=== PATIENT | female | born 1975 | race Caucasian/White ===

== ENCOUNTER 2016-12-20 18:04 | Emergency (ER) | payer BC ==
--- NOTE | 2016-12-20 19:42 | ED ---
Upper Extremity Pain - HPI Summary HPI Summary: Patient presents to ED after a mechanical fall. She endorses pain over her right ventral side of wrist, the base of the left thumb with ecchymosis and left shoulder pain. She states a 8/10 pain. She has not taken anything for the pain. She denies other injuries, hitting her head or LOC. She denies midline cervical tenderness. She is a smoker, but is otherwise healthy. She is able to flex and extend the right wrist, but is unable to move the thumb. She notes to worsening pain on the posterior shoulder and feels she cannot move it. Denies numbness or tingling. - History of Current Complaint Chief Complaint: EDExtremityUpper Stated Complaint: LT WRIST/SHOULDER,RT WRIST, TRIPPED/FELL Time Seen by Provider: 12/20/16 18:25 Hx Obtained From: Patient Hx Last Menstrual Period: doesnt have it anymore Mechanism Of Injury: Fall From A Standing Position Onset/Duration: Started Minutes Ago Timing: Constant Severity Initially: Moderate Severity Currently: Moderate Pain Location: Shoulder, Wrist, Hand Character: Aching, Throbbing Aggravating Factor(s): Lifting, Flexion, Extension, Internal/External Rotation, Abduction, Adduction Alleviating Factor(s): Nothing Associated Signs & Symptoms: Positive: Bruising Related History: Dominant Hand Right - Risk Factors Non-Orthopedic Risk Factor: Negative DVT Risk Factors: Negative Septic Arthritis Risk Factor: Negative Compartment Syndrome Risk Factors: Pain - Allergies/Home Medications Allergies/Adverse Reactions: Allergies Allergy/AdvReac Type Severity Reaction Status Date / Time Clindamycin Allergy Intermediate Hives Verified 06/20/16 10:19 Sulfa Drugs Allergy Intermediate Hives Verified 06/20/16 10:19 PMH/Surg Hx/FS Hx/Imm Hx Previously Healthy: Yes Endocrine/Hematology History: Reports: Hx Diabetes - hx of-off all meds. s/p gastric bypass Denies: Hx Anticoagulant Therapy, Hx Thyroid Disease, Other Endocrine/ Hematological Disorders Cardiovascular History: Reports: Hx Angina, Hx Hypercholesterolemia, Hx Hypertension - hx of-off all meds. s/p gastric bypass, Other Cardiovascular Problems/Disorders - hyperlipidemia Denies: Hx Coronary Artery Disease, Hx Myocardial Infarction, Hx Valvular Heart Disease Respiratory History: Reports: Hx Asthma, Hx Sleep Apnea Denies: Hx Chronic Obstructive Pulmonary Disease (COPD), Other Respiratory Problems/Disorders GI History: Reports: Hx Gastroesophageal Reflux Disease, Other GI Disorders - gastric bypass 2013 Denies: Hx Ulcer History: Denies: Hx Chronic Renal Failure, Other Problems/Disorders Musculoskeletal History: Denies: Hx Fibromyalgia, Other Musculoskeletal History Sensory History: Reports: Hx Contacts or Glasses - GLASSES Denies: Hx Hearing Aid, Other Sensory Impairments Opthamlomology History: Reports: Hx Contacts or Glasses - GLASSES Denies: Other Sensory Impairments Neurological History: Denies: Hx CVA, Hx Dementia, Hx Developmental Delay, Hx Headaches, Hx Migraine, Hx Nerve Disease, Hx Peripheral Neuropathy, Hx Seizures, Hx Spinal Cord Injury, Hx Transient Ischemic Attacks (TIA), Other Neuro Impairments/ Disorders Psychiatric History: Reports: Hx Depression Denies: Hx Schizophrenia, Hx Bipolar Disorder, Other Psychiatric Issues/ Disorders - Surgical History Surgery Procedure, Year, and Place: 2011 - Lining of Uterus removed x2, 1992, 2001. GASTRIC BYPASS , 2013, [place] Hx Anesthesia Reactions: No - Immunization History Date of Tetanus Vaccine: UTD Date of Influenza Vaccine: 2012 Infectious Disease History: Denies: Hx Clostridium Difficile, Hx Hepatitis, Hx Human Immunodeficiency Virus (HIV), Hx of Known/Suspected MRSA, Hx Shingles, Hx Tuberculosis, Hx Known/ Suspected VRE, Hx Known/Suspected VRSA, History Other Infectious Disease, Traveled Outside the [place] in Last 30 Days - Family History Known Family History: Positive: None Negative: Blood Disorder - Social History Alcohol Use: None Hx Substance Use: No Substance Use Type: Reports: None Hx Tobacco Use: No Smoking Status (MU): Never Smoked Tobacco Review of Systems Constitutional: Negative Eyes: Negative Cardiovascular: Negative Respiratory: Negative Positive: no symptoms reported, see HPI Positive: Arthralgia - posterior shoulder pain, Myalgia Positive: Bruising - over base of left thumb Neurological: Negative Psychological: Normal All Other Systems Reviewed And Are Negative: Yes Physical Exam Triage Information Reviewed: Yes Vital Signs On Initial Exam: Initial Vitals Temp Pulse Resp BP 98.3 F 68 18 130/90 12/20/16 18:08 12/20/16 18:08 12/20/16 18:08 12/20/16 18:08 Vital Signs Reviewed: Yes Appearance: Positive: Well-Appearing, Well-Nourished Skin: Positive: Other - ecchymosis over left base of thumb Head/Face: Positive: Normal Head/Face Inspection Eyes: Positive: EOMI, Conjunctiva Clear Neck: Positive: Supple, Nontender, No Lymphadenopathy Respiratory/Lung Sounds: Positive: Clear to Auscultation, Breath Sounds Present Cardiovascular: Positive: Normal, RRR, Pulses are Symmetrical in both Upper and Lower Extremities Musculoskeletal: Positive: Limited @ - abduction of the left shoulder, Pain @ - left shoulder, right wrist, left thumb Neurological: Positive: Sensory/Motor Intact, Alert, Oriented to Person Place, Time, Speech Normal Psychiatric: Positive: Normal Diagnostics - Vital Signs Vital Signs Temp Pulse Resp BP Pulse Ox 12/20/16 18:34 97.9 F 92 18 160/100 98 12/20/16 18:08 98.3 F 68 18 130/90 - Laboratory Lab Statement: Any lab studies that have been ordered have been reviewed, and results considered in the medical decision making process. Course/Dx - Course Course Of Treatment: Patient sent to xray. INDICATION: Left shoulder pain. COMPARISON: None. TECHNIQUE: Routine frontal, Y and axial views were obtained. FINDINGS: There are no acute bony findings. The a.c. and glenohumeral joints are intact. There are findings of calcific tendinitis. IMPRESSION: CALCIFIC TENDINITIS. Ibuprofen given to patient in ED. Patient OK with discharge and will follow up as needed. - Diagnoses Differential Diagnosis/HQI/PQRI: Positive: Bursitis, Contusion, Strain, Sprain Provider Diagnoses: Calcific tendinitis, Fall Discharge - Discharge Plan Condition: Stable Disposition: HOME Patient Education Materials: Calcific Tendinitis (ED) Referrals: Benjamin Bang MD [Primary Care Provider] - Osiris Lee MD [Medical Doctor] - Additional Instructions: Ibuprofen 600mg three times daily with meals Ice x 2 days, then use heat Xrays were taken today and were negative for fractures. Follow up with PCP if symptoms persist, or go see the ortho.
[2016-12-20] MEDS ORDERED: Ibuprofen TAB* 600 MG PO ONE (19:47)
--- NOTE | 2016-12-20 20:04 | RAD ---
INDICATION: Right wrist pain COMPARISON: Right wrist November 05, 2012 TECHNIQUE: AP and lateral views were obtained. FINDINGS: The bony structures, joint spaces, and soft tissues are normal for age. IMPRESSION: NEGATIVE EXAMINATION
--- NOTE | 2016-12-20 20:06 | RAD ---
INDICATION: Left hand pain COMPARISON: September 01, 2007 TECHNIQUE: AP, lateral, and oblique views were obtained. FINDINGS: The bony structures, joint spaces, and soft tissues are normal for age. IMPRESSION: NO ACUTE BONY FINDINGS.
--- NOTE | 2016-12-20 20:07 | RAD ---
INDICATION: Left shoulder pain COMPARISON: None TECHNIQUE: Routine frontal, Y and axial views were obtained. FINDINGS: There are no acute bony findings. The a.c. and glenohumeral joints are intact. There are findings of calcific tendinitis. IMPRESSION: CALCIFIC TENDINITIS
[2016-12-20 20:54] VITALS: BP 150/92
== END 2016-12-20 20:53 | disposition home or self-care (01) ==
LOC: ED 18:04
DX: M65.20 Calcific tendinitis, unspecified site (principal); S60.012A Contusion of left thumb without damage to nail, initial encounter; M25.531 Pain in right wrist; W19.XXXA Unspecified fall, initial encounter; Y93.9 Activity, unspecified; Y92.9 Unspecified place or not applicable
CPT/HCPCS: 99282; A9270-GY

== ENCOUNTER 2017-09-11 17:53 | Emergency (ER) | payer BC ==
[2017-09-11 20:45] LABS: Urine Appearance Clear; Urine Blood Negative (Negative); Urine Color Yellow; Urine Ketones Negative (Negative); Urine Protein Negative (Negative); Urine Specific Gravity 1.023 (1.010-1.030); Urine Urobilinogen Negative (Negative)
[2017-09-11 21:12] LABS: ABS Basophils 0 10^3/ul (0-0.2); ABS Eosinophils 0.1 10^3/ul (0-0.6); ABS Lymphocytes 1.3 10^3/ul (1.0-4.8); ABS Monocytes 0.5 10^3/ul (0-0.8); ABS Neutrophils 3.4 10^3/ul (1.5-7.7); ABS Nucleated RBC 0 10^3/ul; Hematocrit 37 % (35-47); Hemoglobin 12.4 g/dl (12.0-16.0); Lymphocyte % 25.2 % (25-47); Mean Corpuscular HGB Conc 34 g/dl (31-36); Mean Corpuscular Hemoglobin 29 pg (27-31); Mean Corpuscular Volume 86 fL (80-97); Mean Platelet Volume 9 um3 (7.4-10.4); Nucleated Red Blood Cells % 0.1; Platelet Count 202 10^3/ul (150-450); Red Blood Count 4.29 10^6/ul (4.0-5.4); Red Cell Distribution Width 14 % (10.5-15); White Blood Count 5.3 10^3/ul (3.5-10.8)
[2017-09-11 21:30] LABS: EGFR Non-African American 74.7 (>60)
--- NOTE | 2017-09-11 21:53 | ED ---
Cynthia Orr Thomas, scribed for Juvenal Bernabe MD on 09/11/17 at 203 . Abdominal Pain/Female - HPI Summary HPI Summary: The patient is a 42 year old female complaining of LLQ abdominal pain that began today at 13:00. The pain is constant at 2/10, although she has a sharp shooting pain about once a minute. The patient additionally complains of nausea. The patient denies vomiting, constipation, diarrhea, and dysuria. She has a history of gastric bypass in 2013. - History of Current Complaint Chief Complaint: EDAbdPain Stated Complaint: ABD PAIN Time Seen by Provider: 09/11/17 20:13 Hx Obtained From: Patient Hx Last Menstrual Period: doesnt have it anymore Onset/Duration: Lasting Hours - onset today at 13:00, Still Present Severity Initially: Mild Severity Currently: Mild Pain Intensity: 2 Pain Scale Used: 0-10 Numeric Location: Discrete At: LLQ Radiates: No Character: Sharp Alleviating Factor(s): Nothing Associated Signs and Symptoms: Positive: Nausea. Negative: Fever, Constipation , Urinary Symptoms, Vomiting, Diarrhea Allergies/Adverse Reactions: Allergies Allergy/AdvReac Type Severity Reaction Status Date / Time MS Clindamycin [Clindamycin] Allergy Intermediate Hives Verified 06/20/16 10:19 MS Sulfa Drugs [Sulfa Drugs] Allergy Intermediate Hives Verified 06/20/16 10:19 PMH/Surg Hx/FS Hx/Imm Hx Endocrine/Hematology History: Reports: Hx Diabetes - hx of-off all meds. s/p gastric bypass Denies: Hx Anticoagulant Therapy, Hx Thyroid Disease, Other Endocrine/ Hematological Disorders Cardiovascular History: Reports: Hx Angina, Hx Hypercholesterolemia, Hx Hypertension - hx of-off all meds. s/p gastric bypass, Other Cardiovascular Problems/Disorders - hyperlipidemia Denies: Hx Coronary Artery Disease, Hx Myocardial Infarction, Hx Valvular Heart Disease Respiratory History: Reports: Hx Asthma, Hx Sleep Apnea Denies: Hx Chronic Obstructive Pulmonary Disease (COPD), Other Respiratory Problems/Disorders GI History: Reports: Hx Gastroesophageal Reflux Disease, Other GI Disorders - gastric bypass 2013 Denies: Hx Ulcer History: Denies: Hx Chronic Renal Failure, Other Problems/Disorders Musculoskeletal History: Denies: Hx Fibromyalgia, Other Musculoskeletal History Sensory History: Reports: Hx Contacts or Glasses - GLASSES Denies: Hx Hearing Aid, Other Sensory Impairments Opthamlomology History: Reports: Hx Contacts or Glasses - GLASSES Denies: Other Sensory Impairments Neurological History: Denies: Hx CVA, Hx Dementia, Hx Developmental Delay, Hx Headaches, Hx Migraine, Hx Nerve Disease, Hx Peripheral Neuropathy, Hx Seizures, Hx Spinal Cord Injury, Hx Transient Ischemic Attacks (TIA), Other Neuro Impairments/ Disorders Psychiatric History: Reports: Hx Depression Denies: Hx Schizophrenia, Hx Bipolar Disorder, Other Psychiatric Issues/ Disorders - Surgical History Surgery Procedure, Year, and Place: 2011 - Lining of Uterus removed x2, 1992, 2001. GASTRIC BYPASS , 2014, [place] Hx Anesthesia Reactions: No - Immunization History Date of Tetanus Vaccine: UTD Date of Influenza Vaccine: 2012 Infectious Disease History: No Infectious Disease History: Denies: Hx Clostridium Difficile, Hx Hepatitis, Hx Human Immunodeficiency Virus (HIV), Hx of Known/Suspected MRSA, Hx Shingles, Hx Tuberculosis, Hx Known/ Suspected VRE, Hx Known/Suspected VRSA, History Other Infectious Disease, Traveled Outside the [place] in Last 30 Days - Family History Known Family History: Negative: Blood Disorder - Social History Alcohol Use: None Hx Substance Use: No Substance Use Type: Reports: None Hx Tobacco Use: No Smoking Status (MU): Never Smoked Tobacco Review of Systems Negative: Fever Positive: Abdominal Pain, Nausea. Negative: Vomiting, Diarrhea, Other - constipation Negative: dysuria All Other Systems Reviewed And Are Negative: Yes Physical Exam - Summary Physical Exam Summary: Appearance: The patient is well-nourished in no acute distress and in no acute pain. Skin: The skin is warm and dry and skin color reflects adequate perfusion. HEENT: ~The head is normocephalic and atraumatic. The pupils are equal and reactive. The conjunctivae are clear and without drainage. ~Nares are patent and without drainage. ~Mouth reveals moist mucous membranes and the throat is without erythema and exudate. ~The external ears are intact. The ear canals are patent and without drainage. The tympanic membranes are intact. Neck: the neck is supple with full range of motion and non-tender. There are no carotid bruits. ~There is no neck vein distension. Respiratory: Chest is non-tender. ~Lungs are clear to auscultation and breath sounds are symmetrical and equal. Cardiovascular: Heart is regular rate and rhythm. ~There is no murmur or rub auscultated. ~~There is no peripheral edema and pulses are symmetrical and equal. Abdomen: The abdomen is soft. The LLQ is tender. ~There are normal bowel sounds heard in all four quadrants and there is no organomegaly palpated. Back: There is no CVA tenderness appreciated. Musculoskeletal: There is no back tenderness noted. ~Extremities are non-tender with full range of motion. ~There is good capillary refill. ~There is no peripheral edema or calf tenderness elicited. Neurological: Patient is alert and oriented to person, place and time. ~The patient has symmetrical motor strength in all four extremities. ~Cranial nerves are grossly intact. Deep tendon reflexes are symmetrical and equal in all four extremities. Psychiatric: The patient has an appropriate affect and does not exhibit any anxiety or depression. Triage Information Reviewed: Yes Vital Signs On Initial Exam: Initial Vitals Temp Pulse Resp BP Pulse Ox 98 F 81 18 139/89 98 09/11/17 18:05 09/11/17 18:05 09/11/17 18:05 09/11/17 18:05 09/11/17 18:05 Vital Signs Reviewed: Yes Diagnostics - Vital Signs Vital Signs Temp Pulse Resp BP Pulse Ox 09/11/17 18:05 98 F 81 18 139/89 98 - Laboratory Lab Results: Lab Results 09/11/17 09/11/17 09/11/17 Range/Units 20:37 21:00 21:00 WBC 5.3 (3.5-10.8) 10^3/ul RBC 4.29 (4.0-5.4) 10^6/ul Hgb 12.4 (12.0-16.0) g/dl Hct 37 (35-47) % MCV 86 (80-97) fL MCH 29 (27-31) pg MCHC 34 (31-36) g/dl RDW 14 (10.5-15) % Plt Count 202 (150-450) 10^3/ul MPV 9 (7.4-10.4) um3 Neut % (Auto) 63.5 (38-83) % Lymph % (Auto) 25.2 (25-47) % [place] % (Auto) 8.9 (1-9) % Eos % (Auto) 2.0 (0-6) % Baso % (Auto) 0.4 (0-2) % Absolute Neuts (auto) 3.4 (1.5-7.7) 10^3/ul Absolute Lymphs (auto) 1.3 (1.0-4.8) 10^3/ul Absolute Monos (auto) 0.5 (0-0.8) 10^3/ul Absolute Eos (auto) 0.1 (0-0.6) 10^3/ul Absolute Basos (auto) 0 (0-0.2) 10^3/ul Absolute Nucleated RBC 0 10^3/ul Nucleated RBC % 0.1 Sodium 139 (133-145) mmol/L Potassium 3.9 (3.5-5.0) mmol/L Chloride 109 (101-111) mmol/L Carbon Dioxide 25 (22-32) mmol/L Anion Gap 5 (2-11) mmol/L BUN 12 (6-24) mg/dL Creatinine 0.83 (0.51-0.95) mg/dL Est GFR ( Amer) 96.0 (>60) Est GFR (Non-Af Amer) 74.7 (>60) BUN/Creatinine Ratio 14.5 (8-20) Glucose 115 H (70-100) mg/dL Lactic Acid (0.5-2.0) mmol/L Calcium 8.9 (8.6-10.3) mg/dL Total Bilirubin 0.30 (0.2-1.0) mg/dL AST 19 (13-39) U/L ALT 17 (7-52) U/L Alkaline Phosphatase 71 (34-104) U/L C-Reactive Protein 1.40 (< 5.00) mg/L Total Protein 6.6 (6.4-8.9) g/dL Albumin 4.0 (3.2-5.2) g/dL Globulin 2.6 (2-4) g/dL Albumin/Globulin Ratio 1.5 (1-3) Lipase 17 (11.0-82.0) U/L Beta HCG, Quant < 0.60 mIU/mL Urine Color Yellow Urine Appearance Clear Urine pH 6.0 (5-9) Ur Specific [place] 1.023 (1.010-1.030) Urine Protein Negative (Negative) Urine Ketones Negative (Negative) Urine Blood Negative (Negative) Urine Nitrate Negative (Negative) Urine Bilirubin Negative (Negative) Urine Urobilinogen Negative (Negative) Ur Leukocyte Esterase Negative (Negative) Urine Glucose Negative (Negative) Urine Ascorbic Acid * H (Negative) 09/11/17 Range/Units 21:00 WBC (3.5-10.8) 10^3/ul RBC (4.0-5.4) 10^6/ul Hgb (12.0-16.0) g/dl Hct (35-47) % MCV (80-97) fL MCH (27-31) pg MCHC (31-36) g/dl RDW (10.5-15) % Plt Count (150-450) 10^3/ul MPV (7.4-10.4) um3 Neut % (Auto) (38-83) % Lymph % (Auto) (25-47) % [place] % (Auto) (1-9) % Eos % (Auto) (0-6) % Baso % (Auto) (0-2) % Absolute Neuts (auto) (1.5-7.7) 10^3/ul Absolute Lymphs (auto) (1.0-4.8) 10^3/ul Absolute Monos (auto) (0-0.8) 10^3/ul Absolute Eos (auto) (0-0.6) 10^3/ul Absolute Basos (auto) (0-0.2) 10^3/ul Absolute Nucleated RBC 10^3/ul Nucleated RBC % Sodium (133-145) mmol/L Potassium (3.5-5.0) mmol/L Chloride (101-111) mmol/L Carbon Dioxide (22-32) mmol/L Anion Gap (2-11) mmol/L BUN (6-24) mg/dL Creatinine (0.51-0.95) mg/dL Est GFR ( Amer) (>60) Est GFR (Non-Af Amer) (>60) BUN/Creatinine Ratio (8-20) Glucose (70-100) mg/dL Lactic Acid 1.0 (0.5-2.0) mmol/L Calcium (8.6-10.3) mg/dL Total Bilirubin (0.2-1.0) mg/dL AST (13-39) U/L ALT (7-52) U/L Alkaline Phosphatase (34-104) U/L C-Reactive Protein (< 5.00) mg/L Total Protein (6.4-8.9) g/dL Albumin (3.2-5.2) g/dL Globulin (2-4) g/dL Albumin/Globulin Ratio (1-3) Lipase (11.0-82.0) U/L Beta HCG, Quant mIU/mL Urine Color Urine Appearance Urine pH (5-9) Ur Specific [place] (1.010-1.030) Urine Protein (Negative) Urine Ketones (Negative) Urine Blood (Negative) Urine Nitrate (Negative) Urine Bilirubin (Negative) Urine Urobilinogen (Negative) Ur Leukocyte Esterase (Negative) Urine Glucose (Negative) Urine Ascorbic Acid (Negative) Result Diagrams: 09/11/17 21:00 09/11/17 21:00 Lab Statement: Any lab studies that have been ordered have been reviewed, and results considered in the medical decision making process. Abdominal Pain Fem Course/Dx - Course Course Of Treatment: Ms. Bernabe presented with a LLQ pain for a couple days. It is intermittent and crampy. She has had no change in B or B. This seems like a diverticulitis but with her history of gastric bypass 4 years ago, I am getting a CT scan with contrast. - Diagnoses Provider Diagnoses: Abdominal pain, History of gastric bypass Discharge - Discharge Plan Condition: Stable Disposition: OTHER Discharge Disposition Comment: Signed out to Dr. Wilhelm, pending CT Abd/Pel. Referrals: eLny Ortiz MD [Primary Care Provider] - The documentation as recorded by the Cynthia garcia Thomas accurately reflects the service I personally performed and the decisions made by me, Juvenal Bernabe MD.
--- NOTE | 2017-09-11 21:53 | RAD ---
INDICATION: Left lower quadrant pain. Nausea. COMPARISON: CT December 23, 2014 TECHNIQUE: Noncontrast axial source images were acquired from the level hemidiaphragms to the symphysis pubis. Intravenous contrast was not given per ED request. There is a small amount of oral contrast in the stomach only. Lung bases: The lung bases are clear. Liver: The liver is enlarged with findings of hepatic steatosis. Noncontrast imaging shows no evidence of a hepatic mass or ductal dilatation. Gallbladder: There are no calcified gallstones. There is no evidence of wall thickening or pericholecystic fluid.. Spleen: The spleen is normal in size. The noncontrast CT appearance is normal. Pancreas: Noncontrast imaging shows no pancreatic mass or ductal dilitation. Adrenal glands: No masses are identified. Kidneys/Bladder: There is no evidence of nephrolithiasis or CT evidence of hydronephrosis. Noncontrast imaging shows no evidence of a renal mass. The bladder is unremarkable.. Adenopathy: There is no evidence of intraperitoneal or retroperitoneal adenopathy. Evaluation is limited without oral contrast. Fluid collections: There is a small amount of free fluid in the cul-de-sac. Vessels: The aorta and iliac vessels are normal in caliber. There are no significant atherosclerotic changes. The IVC appears normal Pelvic organs: The uterus and adnexa appear normal GI tract: Evaluation of the bowel is limited without oral contrast. There is evidence of gastric bypass surgery. The remainder the upper GI tract is unremarkable. The colon is redundant and there is moderate stool. There is no obstruction. The appendix is visualized and appears normal. Soft tissues: No soft tissue abnormalities of the extraperitoneal abdomen or pelvis are identified. Osseous structures: There are no acute osseous findings. IMPRESSION: 1. Limited examination due to lack of intravenous or significant oral contrast. 2. Gastric bypass surgery. 3. Moderate stool with colonic redundancy. 4. Small amount of fluid in the cul-de-sac
[2017-09-11 22:52] VITALS: BP 131/81
== END 2017-09-11 22:46 ==
LOC: ED 17:53
DX: R10.32 Left lower quadrant pain (principal); Z98.84 Bariatric surgery status; R11.0 Nausea
CPT/HCPCS: 36415; 74176; 80053; 81003; 83605; 83690; 84702; 85025; 86140; 99284

== ENCOUNTER 2018-03-08 09:23 | Emergency (ER) | payer BC ==
[2018-03-08 09:35] VITALS: BP 139/82
--- NOTE | 2018-03-08 11:41 | ED ---
Lower Extremity - HPI Summary HPI Summary: This is scribe Kolton Pearson documenting for attending Rian Ennis MD. This patient is a 42 year old F presenting to [facility] with a chief complaint of R leg pain since 4 days ago. She reports that the leg has started swelling and that it feels hard when you press down. The patient rates the pain 7/10 in severity, enough to wake her up from sleep. She has had R hip pain since 2 months ago, which her PCP gave her ibuprofen for. Patient has a PMHx of diabetes and HTN, a PSHx of 2 C-sections, and a FHx of diabetes and HTN. She does not smoke or drink alcohol. I, Dr. Ennis, personally performed the services described in this documentation as scribed in my presence, and it is both accurate and complete. - History of Current Complaint Chief Complaint: EDHipPelvisInjury Stated Complaint: RT LEG PAIN Time Seen by Provider: 03/08/18 11:25 Hx Obtained From: Patient Hx Last Menstrual Period: doesnt have it anymore Onset of Pain: Days - 4 days Onset/Duration: Days - 4 days Severity Initially: Moderate Severity Currently: Moderate Pain Intensity: 7 Pain Scale Used: 0-10 Numeric Timing: Constant Associated Signs And Symptoms: Positive: Swelling, Other - "it feels hard when you press down" and R hip pain Aggravating Factor(s): Ambulation, Movement - Allergies/Home Medications Allergies/Adverse Reactions: Allergies Allergy/AdvReac Type Severity Reaction Status Date / Time MS Clindamycin [Clindamycin] Allergy Intermediate Hives Verified 03/08/18 09:36 MS Sulfa Drugs [Sulfa Drugs] Allergy Intermediate Hives Verified 03/08/18 09:36 PMH/Surg Hx/FS Hx/Imm Hx Endocrine/Hematology History: Reports: Hx Diabetes - hx of-off all meds. s/p gastric bypass Denies: Hx Anticoagulant Therapy, Hx Thyroid Disease, Other Endocrine/ Hematological Disorders Cardiovascular History: Reports: Hx Angina, Hx Hypercholesterolemia, Hx Hypertension - hx of-off all meds. s/p gastric bypass, Other Cardiovascular Problems/Disorders - hyperlipidemia Denies: Hx Coronary Artery Disease, Hx Myocardial Infarction, Hx Valvular Heart Disease Respiratory History: Reports: Hx Asthma, Hx Sleep Apnea Denies: Hx Chronic Obstructive Pulmonary Disease (COPD), Other Respiratory Problems/Disorders GI History: Reports: Hx Gastroesophageal Reflux Disease, Other GI Disorders - gastric bypass 2013 Denies: Hx Ulcer History: Denies: Hx Chronic Renal Failure, Other Problems/Disorders Musculoskeletal History: Denies: Hx Fibromyalgia, Other Musculoskeletal History Sensory History: Reports: Hx Contacts or Glasses - GLASSES Denies: Hx Hearing Aid, Other Sensory Impairments Opthamlomology History: Reports: Hx Contacts or Glasses - GLASSES Denies: Other Sensory Impairments Neurological History: Denies: Hx CVA, Hx Dementia, Hx Developmental Delay, Hx Headaches, Hx Migraine, Hx Nerve Disease, Hx Peripheral Neuropathy, Hx Seizures, Hx Spinal Cord Injury, Hx Transient Ischemic Attacks (TIA), Other Neuro Impairments/ Disorders Psychiatric History: Reports: Hx Depression Denies: Hx Schizophrenia, Hx Bipolar Disorder, Other Psychiatric Issues/ Disorders - Surgical History Surgery Procedure, Year, and Place: 2011 - Lining of Uterus removed x2, 1992, 2001. GASTRIC BYPASS , 2013, [place] Hx Anesthesia Reactions: No - Immunization History Date of Tetanus Vaccine: UTD Date of Influenza Vaccine: 2012 Infectious Disease History: No Infectious Disease History: Denies: Hx Clostridium Difficile, Hx Hepatitis, Hx Human Immunodeficiency Virus (HIV), Hx of Known/Suspected MRSA, Hx Shingles, Hx Tuberculosis, Hx Known/ Suspected VRE, Hx Known/Suspected VRSA, History Other Infectious Disease, Traveled Outside the [place] in Last 30 Days - Family History Known Family History: Positive: Hypertension, Diabetes Negative: Blood Disorder - Social History Occupation: Unemployed Lives: With Family Alcohol Use: None Hx Substance Use: No Substance Use Type: Reports: None Hx Tobacco Use: No Smoking Status (MU): Never Smoked Tobacco Review of Systems Negative: Fever Positive: Other - R leg pain and swelling. R leg "feels hard" All Other Systems Reviewed And Are Negative: Yes Physical Exam - Summary Physical Exam Summary: VITAL SIGNS: Reviewed. GENERAL: Patient is a well-developed and nourished FEMALE who is lying comfortable in the stretcher. Patient is not in any acute respiratory distress. She is able to bear weight. HEAD AND FACE: No signs of trauma. No ecchymosis, hematomas or skull depressions. No sinus tenderness. EYES: PERRLA, EOMI x 2, No injected conjunctiva, no nystagmus. EARS: Hearing grossly intact. Ear canals and tympanic membranes are within normal limits. MOUTH: Oropharynx within normal limits. NECK: Supple, trachea is midline, no adenopathy, no JVD, no carotid bruit, no c- spine tenderness, neck with full ROM. CHEST: Symmetric, no tenderness at palpation LUNGS: Clear to auscultation bilaterally. No wheezing or crackles. CVS: Regular rate and rhythm, S1 and S2 present, no murmurs or gallops appreciated. ABDOMEN: Soft, non-tender. No signs of distention. No rebound no guarding, and no masses palpated. Bowel sounds are normal. EXTREMITIES: Decreased ROM in R hip. No Andreina's sign. NEURO: Alert and oriented x 3. No acute neurological deficits. Speech is normal and follows commands. SKIN: Dry and warm Triage Information Reviewed: Yes Vital Signs On Initial Exam: Initial Vitals Temp Pulse Resp BP Pulse Ox 98.1 F 72 18 139/82 98 03/08/18 09:29 03/08/18 09:29 03/08/18 09:29 03/08/18 09:29 03/08/18 09:29 Vital Signs Reviewed: Yes Diagnostics - Vital Signs Vital Signs Temp Pulse Resp BP Pulse Ox 03/08/18 09:29 98.1 F 72 18 139/82 98 - Laboratory Lab Statement: Any lab studies that have been ordered have been reviewed, and results considered in the medical decision making process. - Radiology Hip/Pelvis X-Ray Radiology Interpretation Completed By: Radiologist - 12:09. Very mild osteoarthritis of the hips. ED Physician has reviewed this imaging report. - Ultrasound No standard instances Ultrasound Interpretation Completed By: Radiologist - Venous Doppler Study 12: 20. No evidence for RIGHT lower extremity deep venous thrombosis. ED Physician has reviewed this report. Lower Extremity Course/Dx - Course Assessment/Plan: This patient is a 42 year old F presenting to ED with CC of R hip pain and R calf pain. X-Rays of R hip show mild osteoarthritis and US of LE negative for DVT. The patient was given toradol and prednisone and the symptoms improved. The patient is able to ambulate and will be D/C with instructions to follow up with PCP in a week. Diagnosis: hip arthritis and muscoskeletal pain. - Diagnoses Differential Diagnosis/HQI/PQRI: Positive: Osteomyelitis Provider Diagnoses: Arthritis, hip Discharge - Sign-Out/Discharge Documenting (check all that apply): Patient Departure - D/C - Discharge Plan Condition: Stable Disposition: HOME Prescriptions: methylPREDNISolone [Medrol Dosepak 4 MG*] 0 mg PO .SEE SHELBY INSTRUCTION #1 shelby Naproxen [Naproxen 500 mg tab] 500 mg PO BID #30 tablet Patient Education Materials: Osteoarthritis (ED) Referrals: Leny Ortiz MD [Primary Care Provider] - 3 Days Additional Instructions: FOLLOW UP WITH YOUR PRIMARY CARE PROVIDER WITHIN ONE WEEK FOR HIGH BLOOD PRESSURE NOTED TODAY. RETURN TO THE EMERGENCY DEPARTMENT FOR CHANGING OR WORSENING SYMPTOMS.
--- NOTE | 2018-03-08 12:12 | RAD ---
Indication: RIGHT hip pain for several months. Comparison: September 11, 2017 CT. Technique: AP pelvis and AP and frog-leg lateral views RIGHT hip. Report: The RIGHT hip is normally located and demonstrates preserved joint space. Minimal osteophytic lipping at both hips. No fracture or stress reaction evident at the RIGHT hip or pelvis. Unremarkable sacroiliac joints and pubic symphysis. Pelvic phleboliths noted. Unremarkable soft tissue contours. IMPRESSION: #. Very mild osteoarthritis of the hips.
--- NOTE | 2018-03-08 12:23 | RAD ---
INDICATION: Multiple days RIGHT hip and thigh pain. COMPARISON: No relevant prior exams available on the [facility] for comparison. TECHNIQUE: Hector scale, color Doppler, and spectral analysis of the deep veins of the RIGHT lower extremity. Vessel compression, phasicity, and augmentation assessed. REPORT: The RIGHT common femoral, great saphenous, profunda femoral, partially duplicated femoral, popliteal, peroneal, and posterior tibial veins are patent. Patency of the LEFT common femoral vein documented. IMPRESSION: No evidence for RIGHT lower extremity deep venous thrombosis.
[2018-03-08] MEDS ORDERED: Ketorolac INJ* 60 MG/2 ML VIAL IM ONE (12:24)
[2018-03-08] MEDS ORDERED: predniSONE TAB* 20 MG PO ONE (12:27)
== END 2018-03-08 12:52 | disposition home or self-care (01) ==
LOC: ED 09:23
DX: M16.11 Unilateral primary osteoarthritis, right hip (principal); Z88.1 Allergy status to other antibiotic agents; Z88.2 Allergy status to sulfonamides
CPT/HCPCS: 96372; 99282; J1885; J7512

== ENCOUNTER → 2018-05-24 08:40 | Emergency (ER) | payer BC ==
[2018-05-24 11:06] VITALS: BP 119/82
--- NOTE | 2018-05-25 11:52 | ED ---
Skin Complaint - HPI Summary HPI Summary: Pt. is a 43 y.o female who presents to the ER for a rash x 1 month. Pt. states rash started on legs and has spread to arms. Rash is slightly itchy, not painful. No one at home has similar rash. Does not have pets. Pt. states she has seen her pcp and was placed on a course of prednisone and steroid cream which she stats did help. She cannot see her PCP again for about 2 weeks so presents to the ER instead. She denies any new lotions, soaps, detergents, exposures, ect. Does not work. Sxs are mild in severity. NO current modifying factors. - History of Current Complaint Chief Complaint: EDRashSkinAbscess Time Seen by Provider: 05/24/18 08:54 Stated Complaint: RASH Hx Obtained From: Patient Hx Last Menstrual Period: doesnt have it anymore Pain Intensity: 0 Pain Scale Used: 0-10 Numeric - Additional Pertinent History Primary Care Physician: [facility] - Allergy/Home Medications Allergies/Adverse Reactions: Allergies Allergy/AdvReac Type Severity Reaction Status Date / Time clindamycin Allergy Hives Verified 05/24/18 10:05 Sulfa (Sulfonamide Allergy Hives Verified 05/24/18 10:05 Antibiotics) Home Medications: Home Medications Cyanocobalamin (Vitamin B-12) [Vitamin B-12] 1,000 mcg PO DAILY 05/24/18 [ History Confirmed 05/24/18] Diclofenac Sodium EC TAB* [Voltaren EC TAB*] 75 mg PO BID PRN 05/24/18 [History Confirmed 05/24/18] Nystatin CREAM* [Nystatin Cream*] 1 applic TOPICAL BID PRN 05/24/18 [History Confirmed 05/24/18] Nystatin TOP POWDER* 1 applic TOPICAL BID PRN 05/24/18 [History Confirmed ] Omeprazole CAP* [Prilosec CAP* 20 MG] 40 mg PO DAILY 05/24/18 [History Confirmed 05/24/18] hydroCHLOROthiazide [Hydrochlorothiazide] 12.5 mg PO DAILY 05/24/18 [History Confirmed 05/24/18] PMH/Surg Hx/FS Hx/Imm Hx Previously Healthy: Yes Endocrine/Hematology History: Reports: Hx Diabetes - hx of-off all meds. s/p gastric bypass Denies: Hx Anticoagulant Therapy, Hx Thyroid Disease, Other Endocrine/ Hematological Disorders Cardiovascular History: Reports: Hx Angina, Hx Hypercholesterolemia, Hx Hypertension - hx of-off all meds. s/p gastric bypass, Other Cardiovascular Problems/Disorders - hyperlipidemia Denies: Hx Coronary Artery Disease, Hx Myocardial Infarction, Hx Valvular Heart Disease Respiratory History: Reports: Hx Asthma, Hx Sleep Apnea Denies: Hx Chronic Obstructive Pulmonary Disease (COPD), Other Respiratory Problems/Disorders GI History: Reports: Hx Gastroesophageal Reflux Disease, Other GI Disorders - gastric bypass 2013 Denies: Hx Ulcer History: Denies: Hx Chronic Renal Failure, Other Problems/Disorders Musculoskeletal History: Denies: Hx Fibromyalgia, Other Musculoskeletal History Sensory History: Reports: Hx Contacts or Glasses - GLASSES Denies: Hx Hearing Aid, Other Sensory Impairments Opthamlomology History: Reports: Hx Contacts or Glasses - GLASSES Denies: Other Sensory Impairments Neurological History: Denies: Hx CVA, Hx Dementia, Hx Developmental Delay, Hx Headaches, Hx Migraine, Hx Nerve Disease, Hx Peripheral Neuropathy, Hx Seizures, Hx Spinal Cord Injury, Hx Transient Ischemic Attacks (TIA), Other Neuro Impairments/ Disorders Psychiatric History: Reports: Hx Depression Denies: Hx Schizophrenia, Hx Bipolar Disorder, Other Psychiatric Issues/ Disorders - Surgical History Surgery Procedure, Year, and Place: 2011 - Lining of Uterus removed x2, 1992, 2001. GASTRIC BYPASS , 2013, [facility] Hx Anesthesia Reactions: No - Immunization History Date of Tetanus Vaccine: UTD Date of Influenza Vaccine: 2012 Infectious Disease History: No Infectious Disease History: Denies: Hx Clostridium Difficile, Hx Hepatitis, Hx Human Immunodeficiency Virus (HIV), Hx of Known/Suspected MRSA, Hx Shingles, Hx Tuberculosis, Hx Known/ Suspected VRE, Hx Known/Suspected VRSA, History Other Infectious Disease, Traveled Outside the [place] in Last 30 Days - Family History Known Family History: Positive: Hypertension, Diabetes Negative: Blood Disorder - Social History Occupation: Unemployed Lives: With Family Alcohol Use: None Hx Substance Use: No Substance Use Type: Reports: None Hx Tobacco Use: No Smoking Status (MU): Never Smoked Tobacco Review of Systems Constitutional: Negative Positive: Rash All Other Systems Reviewed And Are Negative: Yes Physical Exam Triage Information Reviewed: Yes Vital Signs On Initial Exam: Initial Vitals Temp Pulse Resp BP Pulse Ox 97.2 F 63 18 151/94 98 05/24/18 08:47 05/24/18 08:47 05/24/18 08:47 05/24/18 08:47 05/24/18 08:47 Vital Signs Reviewed: Yes Appearance: Positive: Well-Appearing - Pt. sitting on bed in NAD. Skin: Positive: Warm, Dry, Other - Rash noted to bilateral arms and legs. Rash is erythematous in a circular shape that is well demarcated. Areas of dry and slightly scaley. Not on elbows of knees. Does not wiley. No vesicles or blisters. No central clearing. Eyes: Positive: Normal, EOMI Neck: Positive: Supple Neurological: Positive: Normal, CN Intact II-III Psychiatric: Positive: Affect/Mood Appropriate Diagnostics - Vital Signs Vital Signs Temp Pulse Resp BP Pulse Ox 05/24/18 11:05 97.6 F 78 18 119/82 99 05/24/18 10:57 82 119/82 98 05/24/18 10:26 108/61 05/24/18 10:00 62 98 05/24/18 09:57 62 119/89 97 05/24/18 09:27 70 143/100 98 05/24/18 09:00 64 99 05/24/18 08:57 67 99 05/24/18 08:56 64 145/95 99 05/24/18 08:47 97.2 F 63 18 151/94 98 - Laboratory Lab Statement: Any lab studies that have been ordered have been reviewed, and results considered in the medical decision making process. Course/Dx - Course Course Of Treatment: Pt. presenting with rash x 1 month. No improvement with steroids. She is afebrile and well appearing. Rash is most consistent with possible tinea infection. Will try treatment with a fungal cream. Advised to wash all clothes and linens in hot soapy water. Given info for derm for f.u if rash perisist. - Differential Diagnoses - Skin Complaint Differential Diagnoses: Abscess, Allergic Reaction, Cellulitis, Contact Dermatitis, Impetigo, Local Allergic Reaction - Diagnoses Provider Diagnoses: Tinea corporis Discharge - Sign-Out/Discharge Documenting (check all that apply): Patient Departure - Discharge Plan Condition: Good Disposition: HOME Prescriptions: Clotrimazole 1% CREAM* [Clotrimazole 1%*] 1 applic TOPICAL BID #60 tube Patient Education Materials: Skin Yeast Infection (ED) Referrals: Kiki Darby MD [Medical Doctor] - Ronda Loja MD [Medical Doctor] - Additional Instructions: Schedule a follow up appointment with dermatology Use cream as directed Wash all clothes and lines in hot soapy water Return to ER if symptoms change or worsen - Billing Disposition and Condition Condition: GOOD Disposition: Home
== END | disposition home or self-care (01) ==
LOC: ED 08:40
DX: B35.4 Tinea corporis (principal); Z88.1 Allergy status to other antibiotic agents; Z88.2 Allergy status to sulfonamides
CPT/HCPCS: 99283

== ENCOUNTER 2019-08-02 08:32 | Inpatient (IN) | payer SELFPAY ==
--- OUTSIDE RECORDS SUMMARY | 2019-08-02 08:43 | XMS REPORT | Summary of Care ---
:1975 Author Organization [facility] Address [address] [address] Care Team Providers Name Role Phone Leny Ortiz Primary Care Provider Reason for Referral Refer to Department Only (Routine) Status Reason Specialty Diagnoses / Referred By Referred To Procedures Contact Contact Pending Physical Diagnoses Back pain without radiculopathy Leonardo Ortiz Review Therapy MD [facility] - [address] [place] [address] [place], [place] [address] [address] [address] Phone: [address] [phone] [place], [place] Fax: [phone] Reason for Visit Reason Comments Follow Up 1 month Encounter Details Date Type Department Care Team Description 08/01/2019 Office Visit [facility] Diana Essential hypertension ( Primary Dx); Practice MD Leny Screening mammogram, encounter for; [address] [place] [address] Need for influenza vaccination; [place] [address] [place] [address] Back pain without radiculopathy [phone] Allergies Active Allergy Reactions Severity Noted Date Comments Bee Anaphylaxis High 06/21/2017 Clindamycin Hcl Rash 06/21/2017 Sulfa Antibiotics Rash 06/21/2017 documented as of this encounter (statuses as of 08/01/2019) Medications Medication Sig Dispensed Refills Start Date End Date Status acetaminophen (TYLENOL) Take 500 mg 0 Active 500 MG Oral Tab by mouth EVERY SIX HOURS NEEDED for Pain. cholecalciferol (VITAMIN Take 1,000 0 Active D) 1000 units Oral Tab Units by mouth. hydrochlorothiazide TAKE 1 90 Cap 1 05/01/2019 Active (HCTZ, ORETIC) 12.5 MG CAPSULE BY Oral Cap MOUTH ONCE DAILY Omeprazole 40 MG Oral TAKE 1 90 Cap 0 06/27/2019 Active CAPSULE DELAYED RELEASE CAPSULE BY MOUTH ONCE DAILY nortriptyline (PAMELOR) Take 1 Cap 30 Cap 1 07/31/2017 08/01/19 Discontinued 10 MG Oral Cap by mouth 20 EVERY BEDTIME. mometasone (ELOCON) 0.1 1 Appl by 1 Tube 1 05/28/2018 08/01/19 Discontinued % Apply externally Cream Topical 20 route TWICE DAILY. diclofenac EC (VOLTAREN) TAKE 1 180 Tab 0 06/27/2018 08/01/19 Discontinued 75 MG Oral Tab TABLET BY 20 ECIndications: Chronic MOUTH TWICE hip pain, bilateral DAILY NEEDED FOR PAIN documented as of this encounter (statuses as of 08/01/2019) Active Problems Problem Noted Date Essential hypertension 11/01/2017 documented as of this encounter (statuses as of 08/01/2019) Immunizations Name Administration Dates Next Due Influenza (IM) Preservative Free 08/01/2019, 05/28/2018, 07/18/2017 documented as of this encounter Social History Tobacco Use Types Packs/Day Years Used Date Never Smoker Smokeless Tobacco: Never Used Alcohol Use Drinks/Week oz/Week Comments No Sex Assigned at Date Recorded Not on file Job Start Date Occupation Industry Not on file Not on file Not on file Travel History Travel Start Travel End No recent travel history available. documented as of this encounter Last Filed Vital Signs Vital Sign Reading Time Taken Comments Blood Pressure 138/74 08/01/2019 6:23 PM EST Pulse 67 08/01/2019 6:23 PM EST Temperature 37.1 08/01/2019 6:23 PM EST C (98.8 F) Respiratory Rate - - Oxygen Saturation 97% 08/01/2019 6:23 PM EST Inhaled Oxygen Concentration - - Weight 99.8 kg (220 lb) 08/01/2019 6:23 PM EST Height 162.6 cm (5' 4") 08/01/2019 6:23 PM EST Body Mass Index 37.76 08/01/2019 6:23 PM EST documented in this encounter Patient Instructions Patient InstructionsLeny Ortiz MD - 08/01/2019 6:40 PM EST1. Schedule fasting blood tests, Mammo- 2. Start physical therapy for LBP 3. Follow up in 4 weeks after PT started and as needed documented in this encounter Progress Notes Leny Ortiz MD - 08/01/2019 6:40 PM EST Patient: Sade Bernabe Date of Service: 08/01/2019 Subjective: Sade Bernabe is a 44-y.o. female who presents for Chief Complaint Patient presents with Follow Up 1 month Patient comes follow up HTN BP is well controlled Due for the fasting blood tests She also complains of low back pain for several month(s), positional with bending or lifting, without radiation down the legs. Precipitating factors: none recalled by the patient. Prior history of backproblems: no prior back problems. There is no numbness or weakness in the legs. Past Medical History: Diagnosis Date Hyperlipidemia Hypertension Outpatient Medications as of 08/01/2019 Medication Sig Dispense Refill acetaminophen (TYLENOL) 500 MG Oral Tab Take 500 mg by mouth EVERY SIX HOURS NEEDED for Pain. cholecalciferol (VITAMIN D) 1000 units Oral Tab Take 1,000 Units by mouth. hydrochlorothiazide (HCTZ, ORETIC) 12.5 MG Oral Cap TAKE 1 CAPSULE BY MOUTH ONCE DAILY 90 Cap1 Omeprazole 40 MG Oral CAPSULE DELAYED RELEASE TAKE 1 CAPSULE BY MOUTH ONCE DAILY 90 Cap 0 No current facility-administered medications on file as of 08/01/2019. Allergies Allergen Reactions Bee Anaphylaxis Clindamycin Hcl Rash Sulfa Antibiotics Rash Review of Systems: All remaining review of systems was negative. Objective: BP 138/74 (BP Location: Left arm, Patient Position: Sitting) Pulse 67 Temp 98.8 F (37.1 C)(Tympanic) Ht 5' 4" (1.626 m) Wt 220 lb (99.8 kg) SpO2 97% BMI 37.76 kg/m2 GENERAL: alert, no distress THROAT: lips, mucosa, and tongue normal: teeth and gums normal NECK: supple, symmetrical, trachea midline and no adenopathy BACK: Back exam: pain with motion noted during exam, tenderness in the lower Lumbar area, negative straight-leg raise bilaterally ., normal reflexes and strength bilateral lower extremities, sensory exam intact bilateral lower extremities. LUNGS: clear to auscultation bilaterally HEART: regular rate and rhythm, S1, S2 normal, no murmur, click, rub or gallop ICD-9-CM ICD-10-CM 1. Essential hypertension 401.9 I10 COMPREHENSIVE METABOLIC PANEL LIPID PROFILE 2. Screening mammogram, encounter for V76.12 Z12.31 MAMMO SCREENING TOMOSYNTHESIS BILATERAL 3. Need for influenza vaccination V04.81 Z23 CANCELED: [place] FLU VACCINE PRES FREE 6MOS+ 4. Back pain without radiculopathy 724.5 M54.9 REFER TO PHYSICAL THERAPY / REHAB Patient Instructions 1. Schedule fasting blood tests, Mammo- 2. Start physical therapy for LBP 3. Follow up in 4 weeks after PT started and as needed Author: Leny Ortiz MD documented in this encounter Plan of Treatment Date Type Specialty Care Team Description 08/14/2019 Ancillary Procedure Radiology 08/19/2019 Lab Internal Medicine Name Type Priority Associated Diagnoses Order Schedule MAMMO SCREENING Imaging Routine Screening mammogram, Expected: TOMOSYNTHESIS BILATERAL encounter for 08/01/2019, Expires: 10/29/2020 COMPREHENSIVE METABOLIC Lab Routine Essential hypertension Expected: PANEL 08/01/2019 (Approximate), Expires: 08/01/2020 LIPID PROFILE Lab Routine Essential hypertension Expected: 08/01/2019 (Approximate), Expires: 08/01/2020 Name Type Priority Associated Diagnoses Order Schedule REFER TO PHYSICAL Referral Routine Back pain without 99 Occurrences THERAPY / REHAB radiculopathy starting 08/01/2019 until 08/01/2020 Health Maintenance Due Date Last Done Comments DTaP/Tdap/Td Vaccines (1 - 1984 Tdap) MAMMOGRAM (SCREENING) 07/18/2018 07/18/2017 INFLUENZA VACCINE (#1) 2019 05/28/2018, 07/18/2017 DIABETES SCREENING 05/10/2019 05/10/2018, 06/21/2017 LIPID DISORDER SCREENING 05/10/2019 05/10/2018 PAP SMEAR 07/18/2020 07/18/2017 DEPRESSION SCREENING 08/01/2020 08/01/2019 HEPATITIS A IMMUNIZATION Aged Out No longer eligible based SERIES on patient's age to complete this topic HPV IMMUNIZATION SERIES Aged Out No longer eligible based on patient's age to complete this topic MENINGOCOCCAL VACCINE IMM Aged Out No longer eligible based on patient's age to complete this topic PNEUMOCOCCAL 0-64 YRS Aged Out No longer eligible based on patient's age to complete this topic documented as of this encounter Goals Goal Patient Goal Associated Recent Patient-Stated? Author Type Problems Progress Blood Pressure Blood Pressure 138/74 No Diana, < 140/90 (08/01/2019 Leny, 6:23 PM EST) Note: This is an individualized treatment (blood pressure) goal for Sade Bernabe: Displayed above (on the left) is your goal for blood pressure control. Your most recent blood pressure is also shown above, on the right. You should try to achieve blood pressures that are lower than your goal listed above (on the left). Weight loss vs. 18 mo Lifestyle 0 (08/01/2019 6:23 PM No Leny Ortiz MD max (lbs) >= 10 EST) Note: This is an individualized lifestyle goal for Sade Bernabe: Your body mass index (BMI) is more than 30. You should lose weight. A reasonable starting goal is to lose 10 pounds. Displayed above is how many pounds you have lost thus far towards your 10 pound weight loss goal. Take all prescribed medications as Self-management Leny Ford MD directed Note: This is an individualized self-management goal for Sade Bernabe: Please take all prescribed medications as directed. 1. Do not skip doses. If you cannot afford your medications, talk with your doctor. 2. Use a pill reminder system such as a pill box if needed. Your pharmacist can help you with this. 3. Contact your Pharmacy 5 days before your medication runs out. If you cannot take your medications for any reasons, talk with your doctor. 4. Please bring all of your medication bottles and inhalers (or a list of all your medications/inhalers) with you to every visit. Potential barriers to meeting all of your care plan goals will continue to be addressed on an ongoing basis. documented as of this encounter Results Not on filedocumented in this encounter Visit Diagnoses Diagnosis Screening mammogram, encounter for Need for influenza vaccination Need for prophylactic vaccination and inoculation against influenza Essential hypertension Unspecified essential hypertension Back pain without radiculopathy documented in this encounter
[2019-08-02 08:57] LABS: ABS Eosinophils 0.1 10^3/ul (0-0.6); ABS Lymphocytes 1.1 10^3/ul (1.0-4.8); ABS Monocytes 0.5 10^3/ul (0-0.8); ABS Neutrophils 4.7 10^3/ul (1.5-7.7); Eosinophil % 1.6 %; Hematocrit 37 % (35-47); Hemoglobin 12.8 g/dL (12.0-16.0); Lymphocyte % 16.8 %; Mean Corpuscular HGB Conc 35 g/dL (31-36); Mean Corpuscular Hemoglobin 30 pg (27-31); Mean Corpuscular Volume 87 fL (80-97); Mean Platelet Volume 8.6 fL (7.4-10.4); Platelet Count 270 10^3/uL (150-450); Red Blood Count 4.25 10^6 /uL (3.70-4.87); Red Cell Distribution Width 14 % (10-15); White Blood Count 6.4 10^3/uL (3.5-10.8)
--- NOTE | 2019-08-02 08:58 | ED ---
HPI Chest Pain - HPI Summary HPI Summary: Patient is a 44 her old female who presents emergency department for chest pain palpitations that started last night. Patient states symptoms started at rest and have been intermittent. She notes associated symptoms of nausea and states she is "just not feeling well." Past medical history of obesity, hypertension, diabetes. Denies associated symptoms of abdominal pain and vomiting, diarrhea, cough, fever. Sxs are moderate in severity. No current modifying factors. - History of Current Complaint Chief Complaint: EDChestPainROMI Time Seen by Provider: 08/02/19 08:51 Hx Obtained From: Patient Hx Last Menstrual Period: doesnt have it anymore Pain Intensity: 8 - Additional Pertinent History Primary Care Physician: [facility] - Allergy/Home Medications Allergies/Adverse Reactions: Allergies Allergy/AdvReac Type Severity Reaction Status Date / Time bee venom protein (honey bee) Allergy Anaphylatic Verified 08/02/19 08:53 Shock clindamycin Allergy Hives Verified 08/02/19 08:53 Sulfa (Sulfonamide Allergy Hives Verified 08/02/19 08:53 Antibiotics) PMH/Surg Hx/FS Hx/Imm Hx Previously Healthy: Yes Endocrine/Hematology History: Reports: Hx Diabetes - hx of-off all meds. s/p gastric bypass Denies: Hx Anticoagulant Therapy, Hx Thyroid Disease, Other Endocrine/ Hematological Disorders Cardiovascular History: Reports: Hx Angina, Hx Hypercholesterolemia, Hx Hypertension - hx of-off all meds. s/p gastric bypass, Other Cardiovascular Problems/Disorders - hyperlipidemia Denies: Hx Coronary Artery Disease, Hx Myocardial Infarction, Hx Valvular Heart Disease Respiratory History: Reports: Hx Asthma, Hx Sleep Apnea Denies: Hx Chronic Obstructive Pulmonary Disease (COPD), Other Respiratory Problems/Disorders GI History: Reports: Hx Gastroesophageal Reflux Disease, Other GI Disorders - gastric bypass 2013 Denies: Hx Ulcer History: Denies: Hx Chronic Renal Failure, Other Problems/Disorders Musculoskeletal History: Denies: Hx Fibromyalgia, Other Musculoskeletal History Sensory History: Reports: Hx Contacts or Glasses - GLASSES Denies: Hx Hearing Aid, Other Sensory Impairments Opthamlomology History: Reports: Hx Contacts or Glasses - GLASSES Denies: Other Sensory Impairments Neurological History: Denies: Hx CVA, Hx Dementia, Hx Developmental Delay, Hx Headaches, Hx Migraine, Hx Nerve Disease, Hx Peripheral Neuropathy, Hx Seizures, Hx Spinal Cord Injury, Hx Transient Ischemic Attacks (TIA), Other Neuro Impairments/ Disorders Psychiatric History: Reports: Hx Depression Denies: Hx Schizophrenia, Hx Bipolar Disorder, Other Psychiatric Issues/ Disorders - Surgical History Surgery Procedure, Year, and Place: 2012 - Lining of Uterus removed x2, 1992, 2001. GASTRIC BYPASS , 2014, [place] Hx Anesthesia Reactions: No - Immunization History Date of Tetanus Vaccine: UTD Date of Influenza Vaccine: 2013 Infectious Disease History: No Infectious Disease History: Denies: Hx Clostridium Difficile, Hx Hepatitis, Hx Human Immunodeficiency Virus (HIV), Hx of Known/Suspected MRSA, Hx Shingles, Hx Tuberculosis, Hx Known/ Suspected VRE, Hx Known/Suspected VRSA, History Other Infectious Disease, Traveled Outside the [place] in Last 30 Days - Family History Known Family History: Positive: Hypertension, Diabetes, Non-Contributory Negative: Blood Disorder - Social History Occupation: Unemployed Lives: With Family Alcohol Use: None Hx Substance Use: No Substance Use Type: Reports: None Hx Tobacco Use: No Smoking Status (MU): Never Smoked Tobacco Review of Systems Constitutional: Negative Negative: Fever ENT: Negative Positive: Palpitations, Chest Pain Respiratory: Negative Negative: Shortness Of Breath, Cough Positive: Nausea. Negative: Abdominal Pain, Vomiting, Diarrhea Positive: frequency Neurological: Negative All Other Systems Reviewed And Are Negative: Yes Physical Exam Triage Information Reviewed: Yes Vital Signs On Initial Exam: Initial Vitals Temp Pulse Resp BP Pulse Ox 98.7 F 85 22 154/103 97 08/02/19 08:35 08/02/19 08:35 08/02/19 08:35 08/02/19 08:35 08/02/19 08:35 Vital Signs Reviewed: Yes Appearance: Positive: Well-Appearing - Pt. sitting up in bed in NAD. Family member present. Skin: Positive: Warm, Dry Head/Face: Positive: Normal Head/Face Inspection Eyes: Positive: Normal, EOMI, LEAH Neck: Positive: Supple Respiratory/Lung Sounds: Positive: Clear to Auscultation, Breath Sounds Present Cardiovascular: Positive: Normal, RRR Abdomen Description: Positive: Nontender, Soft Musculoskeletal: Positive: Normal, Strength/ROM Intact Neurological: Positive: Normal, CN Intact II-III Psychiatric: Positive: Affect/Mood Appropriate Procedures - Sedation Patient Received Moderate/Deep Sedation with Procedure: No Diagnostics - Vital Signs Vital Signs Temp Pulse Resp BP Pulse Ox 01/10/20 08:35 98.7 F 85 22 154/103 97 - Laboratory Result Diagrams: 08/02/19 08:47 08/02/19 08:47 Lab Statement: Any lab studies that have been ordered have been reviewed, and results considered in the medical decision making process. Chest Pain Course/Dx - Course Course Of Treatment: Pt. with chest pain and palpitations. BP initially elevated. ECG done at 0835 shows a sinus rhythm of 71bpm, normal axis, flipped t waves in lead 3, no ST elevation or depression, unchanged from prior tracing. Labs show mild elevation in glucose of troponin of 0.08. CXR negative for acute findings per radiology. HEART score moderate risk. Given pt.'s risk factors and elevated trop, hospitalist contacted for admission. Case discussed with Dr. Baldwin who accepts pt. for admission. - Chest Pain Differential Diagnosis/HQI/PQRI: Acute OR, ACS, Angina, Chest Wall, GI Disease, Lower Respiratory Infection - Diagnoses Provider Diagnoses: Chest pain, Elevated troponin Discharge ED - Sign-Out/Discharge Documenting (check all that apply): Patient Departure - Discharge Plan Condition: Stable Disposition: ADMITTED TO [facility] - Billing Disposition and Condition Condition: STABLE Disposition: Admitted to [facility] - Attestation Statements Provider Attestation: I have seen the patient with the YOUSUF and agree with the plan and documentation below except as noted: briefly this is a 44-year-old female presenting palpitations and chest tightness. Elevated troponin to 0.08, normal prior. EKG had no acute changes but baseline abnormal. Plan to admit to hospitalist possible cardiology consult Heather Noble MD
[2019-08-02 09:03] LABS: INR 0.97 (0.82-1.09)
[2019-08-02 09:17] LABS: ALT 16 U/L (7-52); AST 17 U/L (13-39); Albumin/Globulin Ratio 1.4 (1-3); Alkaline Phosphatase 63 U/L (34-104); Anion Gap 6 mmol/L (2-11); BUN/Creatinine Ratio 13.3 (8-20); Blood Urea Nitrogen 12 mg/dL (6-24); CO2 Carbon Dioxide 26 mmol/L (22-32); Chloride 109 mmol/L (101-111); EGFR African American 81.6 (>60); EGFR Non-African American 67.4 (>60); Globulin 2.8 g/dL (2-4); Glucose 156 mg/dL (70-100); Potassium 3.8 mmol/L (3.5-5.0); Sodium 141 mmol/L (135-145); Total Protein 6.8 g/dL (6.4-8.9)
[2019-08-02 09:24] LABS: Troponin I 0.08 ng/mL (<0.03)
[2019-08-02] MEDS ORDERED: Aspirin 81 mg CHEW TAB* 81 MG TAB.CHEW PO ONE (09:24)
[2019-08-02 09:25] LABS: HCG Pregnancy < 0.60 mIU/mL
[2019-08-02 09:43] LABS: Urine Appearance Clear; Urine Bilirubin Negative (Negative); Urine Blood Negative (Negative); Urine Color Yellow; Urine Glucose Negative (Negative); Urine Ketones Negative (Negative); Urine Nitrite Negative (Negative); Urine Protein Negative (Negative); Urine Specific Gravity 1.015 (1.010-1.030); Urine Urobilinogen Negative (Negative)
[2019-08-02 09:57] LABS: TSH (Thyroid Stimulating Horm) 1.75 mcIU/mL (0.34-5.60)
[2019-08-02] MEDS ORDERED: Enoxaparin(*) 40 MG/0.4 ML SYR SUBCUT SCH (12:00)
[2019-08-02 12:15] LABS: Troponin I 0.09 ng/mL (<0.03)
--- NOTE | 2019-08-02 13:47 | HP ---
CC: Dr. Leny Ortiz * HISTORY AND PHYSICAL: DATE OF ADMISSION: 08/02/19 PRIMARY CARE PROVIDER: Dr. Leny Ortiz. ATTENDING PHYSICIAN: Dr. Juan Luis Baldwin * (dictated by DAVIS Alarcon). CHIEF COMPLAINT: Chest pain. HISTORY OF PRESENT ILLNESS: Ms. Bernabe is a 44-year-old female with a past medical history of hypertension, history of diabetes and hyperlipidemia, currently not receiving treatment as she is status post gastric bypass which has resolved these and GERD, who presented to the ER today with complaints of chest pain. She states that the pain that developed last night when she came home from a doctor's appointment, she began to feel unwell, laid down and then developed palpitations, nausea, bilateral arm tingling, shortness of breath and burning/squeezing/pressure sensation under the left breast that lasted 2 to 3 hours. She also had associated dizziness and agitation. She notes that these symptoms stopped this morning between 6:30 and 7 a.m. She notes that her chest pain remains located under the left breast, but is now intermittent, sharp/ stabbing pain, which is associated with shortness of breath. She notes that she does have pain in this area with deep breathing, but that it is different from the sharp stabbing pain. She also notes that the area is tender to palpation. She denies association with eating or exertion. She has not recently done any heavy lifting or started any new exercise regimens, although she notes that she has been busy with a new granddaughter and has been helping with the family member appointments. In 2016, she received a nuclear medicine stress test which shows asymptomatic positive Lexiscan with nuclear medicine stress test portion low risk without fixed or reversible perfusion defect. An echo at that time revealed an EF of 55% to 60% with diastolic function intact. The patient's HEART score is 4, placing her at moderate risk. In the ER, the patient received a full workup including laboratory data revealing an unremarkable CBC and a CMP with glucose 156. Troponin 0.08, 0.09. Negative D- dimer. An EKG shows rate of 71 with T-wave inversions in lead III which is unchanged from previous EKG and a mild T-wave inversion in aVF which is new. There are no ST elevations or depressions. Chest x-ray is unremarkable. The patient was given aspirin 324 mg p.o. in the ER. The hospitalist team was asked to evaluate the patient for admission. PAST MEDICAL HISTORY: 1. Hypertension. 2. History of hyperlipidemia. 3. History of diabetes mellitus, no longer on medications, status post gastric bypass. 4. GERD. 5. History of angina. PAST SURGICAL HISTORY: Gastric bypass, x2. HOME MEDICATIONS: 1. Cyanocobalamin 1000 mcg p.o. daily. 2. Hydrochlorothiazide 12.5 mg p.o. daily. 3. Omeprazole 40 mg p.o. daily. DRUG ALLERGIES: BEE, CLINDAMYCIN, SULFA. FAMILY HISTORY: Maternal grandfather had diabetes mellitus. Maternal grandmother had stomach cancer. Father had leukemia, bone cancer. No family history of heart disease, CVA. SOCIAL HISTORY: The patient denies current or former use of tobacco. She drinks less than monthly. She does not use recreational drugs. She is currently unemployed. She is , with 2 children. She lives at home with her and daughter. In the event that she is unable to make her own medical decisions, she has appointed her , Dallas Bernabe to be her surrogate decision maker. REVIEW OF SYSTEMS: A 14-point review of systems has been performed and all the pertinent positives and negatives are in the HPI. All other systems are negative. PHYSICAL EXAMINATION GENERAL: Ms. Bernabe is a well-developed, well-nourished, obese, middle-aged white female, who is sitting up in bed. She appears to be in no acute distress. She is pleasant and cooperative. HEENT: Normocephalic, atraumatic. PERRL. EOMI. Visual small grossly intact. Sclerae are nonicteric. Hearing is grossly intact. Poor dentition. Oral mucous membranes are moist. There are no lesions. The pharynx is clear. Palate elevates symmetrically. Tongue is at midline. PULMONARY: Symmetrical chest expansion. No use of accessory muscles. Clear to auscultation bilaterally without rhonchi, wheeze, or rales. CARDIOVASCULAR: Regular rate and rhythm with S1, S2 present. No murmurs, rubs , clicks, or gallops. There is tenderness to palpation inferior and lateral to the left breast without signs of skin changes, ecchymosis, or erythema. ABDOMEN: Obese. Bowel sounds in all quadrants. Soft and nontender to palpation. There is no appreciable hepatosplenomegaly. MUSCULOSKELETAL: Full range of motion without pain or deformities. NEURO: The patient is awake. She is alert and oriented x3. Cranial nerves II through XII are grossly intact. She is able to move all of her extremities with a motor strength 5/5 bilaterally in the upper and lower extremities. DIAGNOSTIC STUDIES/LAB DATA: WBC 6.4, hemoglobin 12.8, hematocrit 37, MCV 87. D- dimer less than 200. CMP without abnormality except glucose 156. Troponin 0.08, 0.09. EKG reveals rate of 71 with T-wave inversion in lead III, which is unchanged from previous EKG and mild T-wave inversion in aVF which is new. There are no ST depressions or elevations. Chest x-ray negative for intrathoracic disease. ASSESSMENT AND PLAN: Ms. Bernabe is a 44-year-old female with a past medical history of hypertension, history of diabetes and hyperlipidemia for which she is not receiving treatment and gastroesophageal reflux disease, who presented to the ER today with complaints of chest pain that appears to be pleuritic in nature. The patient will be admitted for: 1. Chest pain with palpitations. EKG is within normal limits with a mild change from last of T-wave inversion in aVF. The patient continues to have intermittent chest pain. Her troponins have been mildly elevated at 0.08 and 0.09. She received aspirin 324 mg in the ER. She will be continued on aspirin 81 mg daily. We will complete acute coronary syndrome workup and continue to trend the patient's troponins, a lipid panel and hemoglobin A1c will be ordered for risk stratification. Repeat EKG will be obtained in the morning. The plan is also for the patient to have a stress test in the morning. The patient has not had any arrhythmias since arrival to the ER, so I am unsure if this is the cause of her troponin elevation or chest pain. She will remain on telemetry to assess for arrhythmia. Her chest pain does appear to be pleuritic in nature and therefore, there is some concern for a pulmonary embolism. She does not appear to have any risk factors except for obesity. Her D-dimer is negative and therefore, CTA will not be pursued. She does have a history of gastroesophageal reflux disease, but her chest pain is not associated with eating or lying flat; therefore, I do not believe that this is a contributor. We will continue acute coronary syndrome workup at this time. 2. History of diabetes mellitus. The patient has a history of diabetes mellitus, which she has not received treatment since her gastric bypass. Her last reported hemoglobin A1c is from 2013 and was 7.2. We will repeat hemoglobin A1c. There is some concern as the patient is requiring increased frequency of urination with a negative UA. We will await hemoglobin A1c results to determine further management. 3. Hypertension. Continue hydrochlorothiazide. 4. History of hyperlipidemia. The patient is currently not on any medications. Her last LDL measurement was 2016 and was 101. We will repeat lipid panel in the morning. 5. Gastroesophageal reflux disease. Continue omeprazole. 6. DVT prophylaxis: According to DVT Risk Assessment, the patient scores 2, placing her at moderate risk. She has been started on enoxaparin 40 mg subcu. 7. Code status: Full code. TIME SPENT: Approximately 60 minutes was spent on this admission, greater than half that time was spent [id number] with the patient obtaining history, performing a physical, and reviewing the plan of care. The case has been discussed with my attending, Dr. Baldwin, who is in agreement with the plan of care. DAVIS MCKEON [id number]/[facility] #: [id number] DAVID
[2019-08-02] MEDS: Acetaminophen TAB* 325 MG PO PRN (14:30)
[2019-08-02 15:13] LABS: Troponin I 0.07 ng/mL (<0.03)
[2019-08-02] MEDS ORDERED: Perflutren Lipid Microsphere* 3 ML VIAL ONE (16:05)
[2019-08-02] MEDS ORDERED: Nitroglycerin TAB 0.4 MG* 0.4 MG TAB SL PRN (17:48)
[2019-08-02] MEDS: Enoxaparin(*) 100 MG/ML SYR SUBCUT SCH (18:08)
--- NOTE | 2019-08-02 19:11 | CONS ---
CC: Dr. Ortiz; Dr. Thomas Etienne INTERVENTIONAL CARDIOLOGY CONSULT NOTE: DATE OF CONSULT: 08/02/19 PRIMARY CARE PHYSICIAN: Dr. Ortiz HISTORY OF PRESENT ILLNESS: A 44-year-old woman with hypertension, history of diabetes and hyperlipidemia, admitted with chest pain. Cardiac consult was performed after stress testing was equivocal, but suspicious. She has been somewhat more fatigued and dyspneic with activity for the past 6 months, but has not had any chest pain. Last night at rest, she developed rapid forceful palpitations, she did not quantitate her pulse, but describes a very rapid heartbeat. With it, she felt a precordial tightness that was inframammary on the left side and then spread across her whole chest. It lasted for a number of hours, resolved before she came to the ER. In the ER, EKG showed sinus rhythm with nonspecific inferior ST-T wave changes similar to prior EKG of 08/26/18 when she was seen for dizziness. Her troponins showed mild elevation of 0.08, 0.09, 0.07. Since hospitalization, she has not had further palpitations, but has had a different sudden, sharp, piercing, intermittent chest pain lasting a few minutes. There is a partial pleuritic component to this pain and it is different from what she presented with. She was scheduled for a routine stress test without imaging. During the stress test , she became dyspneic, and at peak exercise, developed a different precordial tightness, which resolved rapidly in recovery. She again had mild resting inferior repolarization abnormality that increased with exercise. Blood pressure response was normal. Her stress test was equivocal. Unfortunately, a nuclear dose is not available. After discussion of further diagnostic steps, she wants certainty regarding the presence or absence of coronary artery disease and prefers to have a coronary angiography. I discussed with her cardiac cath, procedure, risks, possible percutaneous revascularization with associated risks and need for long-term dual antiplatelet therapy post stenting. I will review her medical regimen and adjust as needed. PAST MEDICAL HISTORY: 1. Morbid obesity, status post bariatric surgery 5 years ago with over a 100- pound weight loss and per her history resolution of her diabetes. 2. Hypertension. 3. Hyperlipidemia. 4. GERD. MEDICATIONS: Pre-hospital medications: 1. Hydrochlorothiazide 12.5 mg daily. 2. Prilosec 40 mg daily. 3. Vitamin B12. Hospital medications: 1. Aspirin 81 mg daily. 2. Lovenox 40 mg subcu daily. 3. Hydrochlorothiazide 12.5 daily. 4. Protonix 40 mg daily. FAMILY HISTORY: Negative for premature coronary artery disease. SOCIAL HISTORY: She is a nonsmoker. REVIEW OF SYSTEMS: General: She is very sedentary. HAY CHOPPER: No history of TIA or CVA. GI: No history of peptic ulcer disease or bleeding. Heme: No history of malignancy or anemia. Renal: No history of renal insufficiency. Liver: No history of liver disease. Remainder all negative. PHYSICAL EXAM: She is currently pain-free. BP 107/63, pulse 65. Her lungs are clear. JVP is not elevated. Neck: Carotids are normal. No thyromegaly. HEENT: Unremarkable. Cardiac Exam: Normal S1, S2. No gallop, murmur, or rub. Abdomen: Benign. Femoral pulse is palpable. Extremities: Radial pulses and pedals are palpable. She has no cyanosis, clubbing or edema. DIAGNOSTIC STUDIES/LAB DATA: EKG as above. Her CBC is normal. BMP includes random blood sugar of 156 with an A1c of 6.5. Troponins as above. Her HCG is less than 0.6. IMPRESSION AND PLAN: 1. Chest pain. She has a number different chest pains, the one on the stress test was different than any of the other chest discomforts that she describes. Her stress test is unfortunately nondiagnostic, although suspicious. She does have a small rise in troponin. We discussed diagnostic alternatives. She prefers certainty through coronary angiography, which I think is reasonable. I have reviewed the procedure with her as well as possible percutaneous revascularization. I will intensify her medical regimen, she is scheduled for cath for Monday morning. She will be followed over the weekend by Dr. Moses. 2. DM II, per hospitalist [facility] [place]. Thank you for the consultation. [id number]/[facility] #: [id number] DAVID
[2019-08-02] MEDS: Metoprolol Tartrate TAB* 25 MG PO SCH (21:15)
[2019-08-03] MEDS: Acetaminophen TAB* 325 MG PO PRN ×3 (03:37→16:35)
[2019-08-03] MEDS: Enoxaparin(*) 100 MG/ML SYR SUBCUT SCH ×2 (05:11→17:54)
[2019-08-03 06:53] LABS: Cholesterol 199 mg/dL; HDL Cholesterol 32.8 mg/dL; LDL Cholesterol 109 mg/dL; Triglycerides 287 mg/dL
[2019-08-03 06:59] LABS: Troponin I 0.03 ng/mL (<0.03)
[2019-08-03] MEDS ORDERED: Pneumococcal *Vac Polyvalent 0.5 ML VIAL IM ONE (09:00)
--- NOTE | 2019-08-03 09:37 | PN ---
Subjective Date of Service: 08/03/19 Interval History: Continuing to have frequent intermittent stabbing/sharp chest pain and pressure that radiates to her left shoulder. Is having intermittent ST elevations and depressions. Has had constant nausea since arrival but was unaware that she could ask for something. Has not vomited. Family History: Unchanged from Admission Social History: Unchanged from Admission Past Medical History: Unchanged from Admission Objective Active Medications: Acetaminophen (Tylenol Tab*) 650 mg PO Q4H PRN PRN Reason: mild to moderate pain Last Admin: 08/03/19 03:37 Dose: 650 mg Aspirin (Aspirin Ec Tab*) 81 mg PO DAILY [facility] Atorvastatin Calcium (Lipitor*) 80 mg PO 1700 [facility] Cyanocobalamin (Vitamin B12 Tab*) 1,000 mcg PO DAILY [facility] Enoxaparin Sodium (Lovenox(*)) 100 mg SUBCUT Q12H [facility] Stop: 08/04/19 23:59 Last Admin: 08/03/19 05:11 Dose: 100 mg Hydrochlorothiazide (Hydrodiuril Tab*) 12.5 mg PO DAILY [facility] Sodium Chloride (Ns 0.9% 1000 Ml) 1,000 mls @ 100 mls/hr IV .per rate [facility] Metoprolol Tartrate (Lopressor Tab*) 25 mg PO TID [facility] Last Admin: 08/02/19 21:15 Dose: 25 mg Nitroglycerin (Nitroglycerin Tab 0.4 Mg*) 0.4 mg SL Q5M PRN PRN Reason: ANGINA Ondansetron HCl (Zofran Inj*) 4 mg IV Q6H PRN PRN Reason: NAUSEA Pantoprazole Sodium (Protonix Tab*) 40 mg PO DAILY [facility] Vital Signs - 8 hr 08/03/19 03:34 Temperature 98 F Pulse Rate 55 Respiratory 16 Rate Blood Pressure 102/60 (mmHg) O2 Sat by Pulse 98 Oximetry Oxygen Devices in Use Now: None Appearance: Well developed woman seen sitting up in bed, mildly distressed. Eyes: No Scleral Icterus, PERRLA Ears/Nose/Mouth/Throat: Clear Oropharnyx, Mucous Membranes Moist, - - Multiple missing/rotted teeth. Neck: NL Appearance and Movements; NL JVP, Trachea Midline Respiratory: Symmetrical Chest Expansion and Respiratory Effort, Clear to Auscultation Cardiovascular: NL Sounds; No Murmurs; No JVD, RRR, No Edema, - - Reproducible chest pain to left lower midline anterior chest wall Abdominal: NL Sounds; No Tenderness; No Distention Lymphatic: No Cervical Adenopathy Extremities: No Edema, No Clubbing, Cyanosis Skin: No Rash or Ulcers, No Nodules or Sclerosis Neurological: Alert and Oriented x 3 Lines/Tubes/Other Access: Clean, Dry and Intact Peripheral IV Result Diagrams: 08/02/19 08:47 08/02/19 08:47 Assess/Plan/Problems-Billing Assessment: This is a 44 year old female with a past medical history significant for HTN, diabetes, HLD who was admitted 08/02/19 for chest pain. Awaiting cardiac cath on Monday. - Patient Problems (1) Chest pain at rest Current Visit: Yes Status: Acute Code(s): R07.9 - CHEST PAIN, UNSPECIFIED SNOMED Code(s): 7547655 Comment: -Started on 08/01/19 at night when she was laying down. Had not performed anything strenuous, was not any emotional duress. -Continuing to have frequent intermittent chest pain described as sharp, stabbing, crushing, radiating to left shoulder. Episode lasts for 15 seconds. Noted several transient beats with ST elevation on monitor over the last few hours. EKG ordered for 10 and 1400. -Ondansetron ordered for constant nausea. Do not want to order nitro patch/ paste due to low BP's. -Awaiting cardiac cath. Telemetry monitoring in place. (2) HTN (hypertension) Current Visit: Yes Status: Acute Code(s): I10 - ESSENTIAL (PRIMARY) HYPERTENSION SNOMED Code(s): 25834562 Comment: -Blood pressures are within acceptable limits though slightly soft. Can continue HCTZ and metoprolol. (3) Diabetes type 2, controlled Current Visit: Yes Status: Acute Code(s): E11.9 - TYPE 2 DIABETES MELLITUS WITHOUT COMPLICATIONS SNOMED Code(s): 65401960 Comment: -Not currently on medication. Fingersticks ordered BID. (4) GERD (gastroesophageal reflux disease) Current Visit: Yes Status: Acute Code(s): K21.9 - GASTRO-ESOPHAGEAL REFLUX DISEASE WITHOUT ESOPHAGITIS SNOMED Code(s): 661052958 Comment: -Asymptomatic. Continue pantoprazole. (5) DVT prophylaxis Current Visit: No Status: Acute Code(s): GUC3385 - SNOMED Code(s): 367299274 Comment: -Continue lovenox. (6) Elevated troponin Current Visit: No Status: Acute Code(s): R79.89 - OTHER SPECIFIED ABNORMAL FINDINGS OF BLOOD CHEMISTRY SNOMED Code(s): 493650123 Comment: -Was unable to have complete stress test due to lack of lexiscan. However, Dr. Etienne felt that that he was seeing was suspicious, will obtain cardiac cath on Monday. Trops have trended down. (7) Full code status Current Visit: No Status: Acute Code(s): Z78.9 - OTHER SPECIFIED HEALTH STATUS SNOMED Code(s): 692362231 Status and Disposition: Condition: Guarded Disposition: Admit inpatient. Attending: Yary Staley
[2019-08-03] MEDS: Hydrochlorothiazide TAB* 25 MG PO SCH (09:47)
[2019-08-03] MEDS: Aspirin EC TAB* 81 MG TAB.EC PO SCH (09:47)
[2019-08-03] MEDS: Cyanocobalamin TAB* 500 MCG PO SCH (09:48)
[2019-08-03] MEDS: Pantoprazole TAB * 40 MG TAB PO SCH (09:48)
[2019-08-03] MEDS: Metoprolol Tartrate TAB* 25 MG PO SCH ×3 (09:48→19:56)
[2019-08-03] MEDS: Ondansetron INJ* 2 MG/ML VIAL IV PRN ×2 (09:49→16:32)
[2019-08-03] MEDS: Atorvastatin* 80 MG TAB PO SCH (17:54)
[2019-08-04] MEDS: Enoxaparin(*) 100 MG/ML SYR SUBCUT SCH ×2 (08:44→17:31)
[2019-08-04] MEDS: Pantoprazole TAB * 40 MG TAB PO SCH (08:46)
[2019-08-04] MEDS: Metoprolol Tartrate TAB* 25 MG PO SCH ×2 (08:46→20:26)
[2019-08-04] MEDS: Cyanocobalamin TAB* 500 MCG PO SCH (08:46)
[2019-08-04] MEDS: Aspirin EC TAB* 81 MG TAB.EC PO SCH (08:46)
[2019-08-04] MEDS ORDERED: Insulin LISPRO* 1 UNITS UNIT SUBCUT ONE (09:19)
--- NOTE | 2019-08-04 09:31 | PN ---
Subjective Date of Service: 08/04/19 Interval History: No longer having sharp, stabbing chest pains. In the over night, she was awoken by staff to check on her several times due to a heart rate in the 30's. Each time she awakened with chest pressure, though no pain, that quickly resolved. Denies shortness of breath. States that she feels well today. Family History: Unchanged from Admission Social History: Unchanged from Admission Past Medical History: Unchanged from Admission Objective Active Medications: Acetaminophen (Tylenol Tab*) 650 mg PO Q4H PRN PRN Reason: mild to moderate pain Last Admin: 08/03/19 16:35 Dose: 650 mg Aspirin (Aspirin Ec Tab*) 81 mg PO DAILY [facility] Last Admin: 08/04/19 08:46 Dose: 81 mg Atorvastatin Calcium (Lipitor*) 80 mg PO 1700 [facility] Last Admin: 08/03/19 17:54 Dose: 80 mg Cyanocobalamin (Vitamin B12 Tab*) 1,000 mcg PO DAILY [facility] Last Admin: 08/04/19 08:46 Dose: 1,000 mcg Enoxaparin Sodium (Lovenox(*)) 100 mg SUBCUT Q12H [facility] Stop: 08/04/19 23:59 Last Admin: 08/04/19 08:44 Dose: 100 mg Hydrochlorothiazide (Hydrodiuril Tab*) 12.5 mg PO DAILY [facility] Last Admin: 08/03/19 09:47 Dose: 12.5 mg Sodium Chloride (Ns 0.9% 1000 Ml) 1,000 mls @ 100 mls/hr IV .per rate [facility] Insulin Human Lispro (Humalog*) 3 units SUBCUT ONCE ONE Stop: 08/04/19 09:20 Metoprolol Tartrate (Lopressor Tab*) 25 mg PO BID [facility] Nitroglycerin (Nitroglycerin Tab 0.4 Mg*) 0.4 mg SL Q5M PRN PRN Reason: ANGINA Ondansetron HCl (Zofran Inj*) 4 mg IV Q6H PRN PRN Reason: NAUSEA Last Admin: 08/03/19 16:32 Dose: 4 mg Pantoprazole Sodium (Protonix Tab*) 40 mg PO DAILY [facility] Last Admin: 08/04/19 08:46 Dose: 40 mg Vital Signs - 8 hr 08/04/19 08/04/19 08/04/19 03:15 07:24 08:57 Temperature 98.1 F 98.0 F Pulse Rate 49 53 Respiratory 20 18 16 Rate Blood Pressure 107/71 118/72 (mmHg) O2 Sat by Pulse 98 97 Oximetry Oxygen Devices in Use Now: None Appearance: This is a well developed, obese woman seen sitting up in bed. No acute distress. Eyes: No Scleral Icterus, PERRLA Ears/Nose/Mouth/Throat: NL Teeth, Lips, Gums, Clear Oropharnyx, Mucous Membranes Moist Neck: NL Appearance and Movements; NL JVP, Trachea Midline Respiratory: Symmetrical Chest Expansion and Respiratory Effort, Clear to Auscultation Cardiovascular: NL Sounds; No Murmurs; No JVD, RRR, No Edema Abdominal: NL Sounds; No Tenderness; No Distention Lymphatic: No Cervical Adenopathy Extremities: No Edema, No Clubbing, Cyanosis Skin: No Rash or Ulcers, No Nodules or Sclerosis Neurological: Alert and Oriented x 3 Lines/Tubes/Other Access: Clean, Dry and Intact Peripheral IV Result Diagrams: 08/02/19 08:47 08/02/19 08:47 Assess/Plan/Problems-Billing Assessment: This is a 44 year old female with a past medical history significant for HTN, diabetes, HLD who was admitted 08/02/19 for chest pain. Awaiting cardiac cath on Monday. - Patient Problems (1) Chest pain at rest Current Visit: Yes Status: Acute Code(s): R07.9 - CHEST PAIN, UNSPECIFIED SNOMED Code(s): 2525776 Comment: -Started on 08/01/19 at night when she was laying down. Had not performed anything strenuous, was not any emotional duress. -Chest pressure in the overnight after being awakened by staff to check on her due to heart rate in the 30's on the monitor. Decreased metoprolol form TID to BID. Holding parameters in place. -Awaiting cardiac cath. Telemetry monitoring in place. (2) HTN (hypertension) Current Visit: Yes Status: Acute Code(s): I10 - ESSENTIAL (PRIMARY) HYPERTENSION SNOMED Code(s): 72871208 Comment: -Blood pressures are within acceptable limits though slightly soft. Can continue HCTZ. Decreased dosing of metoprolol. (3) Diabetes type 2, controlled Current Visit: Yes Status: Acute Code(s): E11.9 - TYPE 2 DIABETES MELLITUS WITHOUT COMPLICATIONS SNOMED Code(s): 66013908 Comment: -Not currently on medication. Fingersticks ordered BID. -Ordered one time dose of lispro due to blood sugar over 200. (4) GERD (gastroesophageal reflux disease) Current Visit: Yes Status: Acute Code(s): K21.9 - GASTRO-ESOPHAGEAL REFLUX DISEASE WITHOUT ESOPHAGITIS SNOMED Code(s): 991396505 Comment: -Asymptomatic. Continue pantoprazole. (5) DVT prophylaxis Current Visit: No Status: Acute Code(s): KFB6948 - SNOMED Code(s): 703363566 Comment: -Continue lovenox. (6) Elevated troponin Current Visit: No Status: Acute Code(s): R79.89 - OTHER SPECIFIED ABNORMAL FINDINGS OF BLOOD CHEMISTRY SNOMED Code(s): 532674759 Comment: -Was unable to have complete stress test due to lack of lexiscan. However, Dr. Etienne felt that that he was seeing was suspicious, will obtain cardiac cath on Monday. Trops have trended down. (7) Full code status Current Visit: No Status: Acute Code(s): Z78.9 - OTHER SPECIFIED HEALTH STATUS SNOMED Code(s): 365996884 Status and Disposition: Condition: Guarded Disposition: Admit inpatient. Attending: Yary Staley
[2019-08-04] MEDS: Hydrochlorothiazide TAB* 25 MG PO SCH (10:12)
--- NOTE | 2019-08-04 11:55 | ECHO ---
*[facility]* [place] [address] Fax #: [phone] Transthoracic Echocardiogram Patient: Sade Bernabe : 1975 Study Date: 08/02/2019 Age: 44 Gender: F HR: 68 bpm Height: 64.2 in /163 cm BSA: 2.18 m^2 Weight: 220 lb /100 kg BMI: 37.6 kg/m^2 *Preschool Associate Teacher: * Darline Arredondo [facility] *Referring Physician: * Ronda CervantesReading Physician: * Nasir Moses MD Indications: Chest Pain, unspecified. History: Risk factors: Hypertension. Diabetes mellitus. Obese. Dyslipidemia. Conclusions Summary: - Left ventricle: Systolic function is normal. The estimated ejection fraction is 60-65%. Wall motion is normal; there are no regional wall motion abnormalities. - Left atrium: The atrium is mildly to moderately dilated. - Right atrium: The atrium is mildly dilated. - Mitral valve: There is trace regurgitation. - Tricuspid valve: There is trace regurgitation. - Pulmonic valve: There is trace regurgitation. Recommendations: C/t 01/31/2016, no overt significant changes. Study data: Transthoracic echocardiogram. Procedure: Transthoracic echocardiography was performed. Image quality was suboptimal. The study was technically limited due to body habitus. Intravenous Definity , 2 mlswas administered. Complete 2D, spectral Doppler, and color flow Doppler. Location: Bedside. Patient status: Inpatient. Patient room number: 438. Rhythm: Normal sinus rhythm. Findings Left ventricle: The cavity size is normal. Wall thickness is mildly increased. Systolic function is normal. The estimated ejection fraction is 60-65%. Wall motion is normal; there are no regional wall motion abnormalities. There is no consistent Doppler evidence of clinically significant diastolic dysfunction. Right ventricle: The cavity size is normal. Systolic function is normal. Left atrium: The atrium is mildly to moderately dilated. Right atrium: The atrium is mildly dilated. Mitral valve: The leaflets are normal thickness. There is no evidence of stenosis. There is trace regurgitation. Aortic valve: The valve is trileaflet. The leaflets are normal thickness. There is no evidence of stenosis. There is no significant regurgitation. Tricuspid valve: The leaflets are normal thickness. There is no evidence of stenosis. There is trace regurgitation. Pulmonic valve: Not well visualized. The leaflets are normal thickness. There is no evidence of stenosis. There is trace regurgitation. Aorta: Aortic root: The aortic root is appears normal. Ascending aorta: The ascending aorta is appears normal. Aortic arch: The aortic arch is appears normal. Pericardium: A prominent pericardial fat pad is present. There is no significant pericardial effusion. Pulmonary arteries: Poorly visualized. Systolic pressure can not be accurately estimated. Systemic veins: Inferior vena cava: Not well visualized. Measurements Left ventricle Value Ref Right atrium Value Ref REYES, LAX 4.6 cm 3.8 - RA ID, major 5.5 cm --------- 5.2 RA ID, minor 4.2 cm --------- ESD, LAX 3.4 cm 2.2 - Estimated RAP 8 mm Hg --------- 3.5 FS, LAX (L) 26 % 27 - 45 Aortic valve Value Ref PW, ED, LAX (H) 1.2 cm 0.6 - Liza diam, S 2.3 cm 1.9 - 2.7 0.9 Peak v, S 1.6 m/sec --------- E', lat liza, TDI 12.0 cm/sec >=10.0 VTI, S 34.0 cm ---- ----- E/e', lat liza, TDI 7 -------- Mean grad, S 5.0 mm Hg ------- -- E', med liza, TDI (L) 6.0 cm/sec >=7.0 Peak grad, S 10.2 mm Hg ---- ----- E/e', med liza, TDI 13 -------- LVOT/AV, VTI ratio 0.66 ------- -- E', avg, TDI 9.0 cm/sec -------- E/e', avg, TDI 9 <=14 Mitral valve Value Ref Peak E 0.8 m/sec --------- LVOT Value Ref Peak A 0.7 m/sec --------- Peak marylin, S 1 m/sec -------- Decel time 206 ms --------- VTI, S 22.6 cm -------- Peak grad, D 2.6 mm Hg --------- Mean grad, S 2 mm Hg -------- Peak E/A ratio 1.14 --------- Ventricular septum Value Ref Pulmonic valve Value Ref IVS, ED, LAX (H) 1.2 cm 0.6 - Peak v, S 0.7 m/sec --------- 0.9 Aortic root Value Ref Right ventricle Value Ref Root diam, ED MM 3.10 cm --------- REYES, LAX 2.9 cm -------- REYES minor ax, A4C 3.1 cm 1.9 - Ascending aorta Value Ref mid 3.5 AAo diam 3.1 cm 1.9 - 3.5 Left atrium Value Ref Aortic arch Value Ref LA ID 3.8 cm -------- Arch diam 2.6 cm --------- ML dim, A4C 4.7 cm -------- SI dim, A4C 5.8 cm -------- Vol/bsa, ES, 1-p 31 ml/m^2 11 - 40 A4C Legend: (L) and (H) alie values outside specified reference range. Prepared and electronically signed by Nasir Moses MD 08/04/2019 11:54
[2019-08-04] MEDS: Ondansetron INJ* 2 MG/ML VIAL IV PRN (14:43)
[2019-08-04] MEDS: Atorvastatin* 80 MG TAB PO SCH (17:32)
[2019-08-05] MEDS: NS 0.9% 1000 ML** 1,000 ML IV SCH ×2 (06:37→10:57)
[2019-08-05] MEDS: Pantoprazole TAB * 40 MG TAB PO SCH (07:42)
[2019-08-05] MEDS: Cyanocobalamin TAB* 500 MCG PO SCH (07:42)
[2019-08-05] MEDS: Aspirin EC TAB* 81 MG TAB.EC PO SCH (07:42)
[2019-08-05] MEDS: Metoprolol Tartrate TAB* 25 MG PO SCH ×2 (07:45→20:58)
[2019-08-05] MEDS: Hydrochlorothiazide TAB* 25 MG PO SCH (07:45)
[2019-08-05] MEDS ORDERED: VERAPAMIL 2.5 MG/ML 2 ML VIAL ** 5 mg/2 ml ONE (08:13)
[2019-08-05] MEDS ORDERED: fentaNYL* 50 MCG/ML 2 ML VIAL (100 MCG VIAL) ONE (08:13)
[2019-08-05] MEDS ORDERED: Midazolam* 1 MG/ML 5 ML VIAL (5 MG) ONE (08:13)
[2019-08-05] MEDS ORDERED: Heparin(*) 1000 UNIT/ML 10 ML VIAL CATH LAB IV ONE (08:13)
[2019-08-05] MEDS ORDERED: Heparin 2 UNITS/ML IVPREMIX* 2,000 ML IV ONE (08:14)
[2019-08-05] MEDS ORDERED: Lidocaine 1% INJ* 10 MG/ML 30 ML SDV ONE (08:15)
[2019-08-05] MEDS ORDERED: Iohexol 350 (CONTRAST) 200 ML MDV IV ONE ×2 (08:15→09:01)
[2019-08-05] MEDS ORDERED: nitroGLYCERIN DRIP* 25,000 MCG/250 ML BTL ONE (08:15)
--- NOTE | 2019-08-05 11:18 | CATH ---
CC: Dr. Ortiz, [facility] * CARDIAC CATHETERIZATION REPORT: DATE OF PROCEDURE: 08/05/2019 INDICATION FOR THE CARDIAC CATHETERIZATION: Asked by Dr. Thomas Etienne and Dr. Moses of the [facility] to perform diagnostic coronary arteriography in light of the patient presenting with chest discomfort, having abnormal troponins, and developing downsloping ST segments in the inferior leads with exercise on a regular exercise stress test without nuclear image. PROCEDURES: Coronary arteriography, left heart catheterization, left ventriculography. CONSENT: The patient was interviewed and examined on the floor of the hospital where the risks and benefits were explained. She understood and wished to proceed. APPROACH UTILIZED: The right radial artery was assessed for size by ultrasound and as such was found to be acceptable for an approach. EQUIPMENT UTILIZED: 1. Right radial artery sheath - 6 [place] Glidesheath slender. 2. Diagnostic coronary catheter with a TIG-4, 5 [place] catheter. 3. Diagnostic guidewire utilized with a 260 lens Gray curved guidewire. 4. Left heart catheterization catheter was a 5 [place] PIG short radial. 5. The hemostasis device utilized was a regular length Vasc Band by [employer]. PRECARDIAC CATHETERIZATION LABORATORY RESULTS: Hemoglobin and hematocrit of 12.8 and 37 with a platelet count of 270,000. BUN and creatinine are 12 and 0.9. Sodium 141, potassium 3.8, chloride 109, bicarb 26, troponin 0.09. MEDICATIONS GIVEN DURING THE PROCEDURE: Radial artery cocktail including 3000 units of heparin, 300 mcg of nitroglycerin, and 3 mg of verapamil. 1% lidocaine for local anesthesia. 1.5 mg of Versed IV. DESCRIPTION OF PROCEDURE: The patient was brought to the cardiovascular laboratory where a formal time-out was performed. Under ultrasound guidance, the right radial artery was cannulated and the sheath was introduced. The radial artery cocktail was given. Coronary arteriography was performed followed by left heart catheterization and left ventriculography. A total of 24 cc of Omnipaque dye at a rate of 12 cc per second was utilized. Following this, the catheters were removed, the sheath was removed, and hemostasis was obtained with a Vasc Band. The reverse Barbeau was a B. The total contrast used was 65 cc of Omnipaque dye. Radiation exposure included 4.9 minutes of fluoro time, the air kerma radiation was 1387 milligray, the DAP radiation was 8359 microgray per meter square. RESULTS: HEMODYNAMIC DATA: Left heart catheterization revealed central aortic pressure recorded at 126 over left ventricular end-diastolic pressure of 6. Central aortic pressure 134/ 70 with a mean of 99. LEFT VENTRICULOGRAPHY: Performed in the MANCINI projection revealed symmetrical contraction of the left ventricle. There were no definitive focal wall motion abnormalities. The overall ejection fraction was estimated 55% to 60%. CORONARY ARTERIOGRAPHY: A. Left coronary artery: 1. Left main - widely patent with no significant narrowing seen. The distal portion had very mild plaquing in it, but no significant luminal reduction. 2. Left anterior descending artery - the proximal portion of the left anterior descending artery had a mild narrowing of 30% seen. The rest of the left anterior descending artery had no significant luminal irregularities throughout its course. It supplied a very high septal harvest worker field crop as well as a high diagonal branch, a smaller second diagonal branch, and a moderate size bifurcating mid diagonal branch. The left anterior descending artery did extend to the apical region and minimally onto the distal inferior wall. 3. Circumflex artery - Non-dominant vessel supplying a high first obtuse marginal branch followed by a moderate size obtuse marginal branch, which extended to the apical inferior posterior wall. The circumflex continued in the AV groove to supply multiple low lying posterior left ventricular branches with the last one paralleling the right-sided posterior descending artery. There was no significant disease noted throughout the course of the vessel or its branches. B. Right coronary artery - a dominant vessel supplying a thin first RV branch with a moderate size second bifurcating RV branch, which extended to the distal inferior septal area. The continuation of the right coronary artery supplied the PDA with no posterior left ventricular branches. That PDA supplied the proximal portion of the inferior septum. There were mild luminal irregularities seen throughout the course of the right coronary artery with a 20 % to 25% narrowing in the mid right coronary artery after the take off of the large acute marginal branch. The acute marginal branch had mild 20% to 25% narrowing seen as well. OVERALL ASSESSMENT: Normal left ventricular contractility with no significant stenotic coronary artery disease. Normal left ventricular end-diastolic pressure also noted. This information was shared with Charity Davila NP, who is the primary hospitalist involved with her care. Interestingly given her history on presentation of having had several hours of sustained tachycardia, I wonder if she does not have paroxysmal SVT or paroxysmal atrial fibrillation and whether or not this sustained arrhythmia produced the troponin abnormalities. Consideration for followup through her primary care physician Dr. Ortiz or geodetic advisor of her choice with regard to perhaps a Holter monitor or loop recorder might be reasonable. The patient will see my partner Dr. Etienne in approximately 1 week from now for a wound check to make sure the radial artery site healed well. The patient is currently on metoprolol, which should help for any SVT or paroxysmal atrial fibrillation albeit the dose may need to be increased as tolerated as an outpatient. Consider for low-dose amlodipine in case coronary artery spasm is the issue was also raised and she was started on low-dose amlodipine. [id number]/[facility] #: [id number] MTDD
[2019-08-05] MEDS: amLODIPine TAB* 5 MG PO SCH (12:17)
[2019-08-05] MEDS: Atorvastatin* 80 MG TAB PO SCH (17:26)
--- NOTE | 2019-08-05 22:21 | PN ---
Subjective Date of Service: 08/05/19 Interval History: Experienced chest pressure during her cardiac cath, but not before or after. Denied lightheadedness, dizziness, chest pain, palpitation, abdominal pain, nausea, vomiting, issues moving bowel or bladder. Family History: Unchanged from Admission Social History: Unchanged from Admission Past Medical History: Unchanged from Admission Objective Active Medications: Acetaminophen (Tylenol Tab*) 650 mg PO Q4H PRN PRN Reason: mild to moderate pain Last Admin: 08/03/19 16:35 Dose: 650 mg Amlodipine Besylate (Norvasc Tab*) 2.5 mg PO DAILY [facility] Last Admin: 08/05/19 12:17 Dose: 2.5 mg Aspirin (Aspirin Ec Tab*) 81 mg PO DAILY [facility] Last Admin: 08/05/19 07:42 Dose: 81 mg Atorvastatin Calcium (Lipitor*) 80 mg PO 1700 [facility] Last Admin: 08/05/19 17:26 Dose: 80 mg Cyanocobalamin (Vitamin B12 Tab*) 1,000 mcg PO DAILY [facility] Last Admin: 08/05/19 07:42 Dose: 1,000 mcg Metoprolol Tartrate (Lopressor Tab*) 12.5 mg PO BID [facility] Last Admin: 08/05/19 20:58 Dose: 12.5 mg Nitroglycerin (Nitroglycerin Tab 0.4 Mg*) 0.4 mg SL Q5M PRN PRN Reason: ANGINA Ondansetron HCl (Zofran Inj*) 4 mg IV Q6H PRN PRN Reason: NAUSEA Last Admin: 08/04/19 14:43 Dose: 4 mg Pantoprazole Sodium (Protonix Tab*) 40 mg PO DAILY [facility] Last Admin: 08/05/19 07:42 Dose: 40 mg Vital Signs - 8 hr 08/05/19 08/05/19 08/05/19 14:29 16:00 16:10 Temperature 98.1 F 98.1 F Pulse Rate 69 58 Respiratory 20 20 Rate Blood Pressure 128/66 99/54 (mmHg) O2 Sat by Pulse 100 99 Oximetry 08/05/19 08/05/19 08/05/19 19:33 20:49 21:42 Temperature 97.1 F Pulse Rate 66 Respiratory 16 16 16 Rate Blood Pressure 110/70 (mmHg) O2 Sat by Pulse 96 Oximetry Oxygen Devices in Use Now: None Appearance: This is a well developed woman seen sitting up in bed, no acute distress noted. Eyes: No Scleral Icterus, PERRLA Ears/Nose/Mouth/Throat: NL Teeth, Lips, Gums, Clear Oropharnyx, Mucous Membranes Moist Neck: NL Appearance and Movements; NL JVP, Trachea Midline Respiratory: Symmetrical Chest Expansion and Respiratory Effort, Clear to Auscultation Cardiovascular: NL Sounds; No Murmurs; No JVD, RRR, No Edema Abdominal: NL Sounds; No Tenderness; No Distention Lymphatic: No Cervical Adenopathy Extremities: No Edema, No Clubbing, Cyanosis Skin: No Rash or Ulcers, No Nodules or Sclerosis Neurological: Alert and Oriented x 3 Lines/Tubes/Other Access: Clean, Dry and Intact Peripheral IV Result Diagrams: 08/02/19 08:47 08/02/19 08:47 Assess/Plan/Problems-Billing Assessment: This is a 44 year old female with a past medical history significant for HTN, diabetes, HLD who was admitted 08/02/19 for chest pain. Awaiting cardiac cath on Monday. - Patient Problems (1) Chest pain at rest Current Visit: Yes Status: Acute Code(s): R07.9 - CHEST PAIN, UNSPECIFIED SNOMED Code(s): 0835750 Comment: -Started on 08/01/19 at night when she was laying down. Had not performed anything strenuous, was not any emotional duress. -Due to continued bradycardia in the 40-50s, decreased metoprolol to 12.5mg BID. -Cardiac cath was clean, Dr. Juarez recommended initiation of amlodipine for its antianginal effect and to continue metoprolol. -Follow up with Dr. Badillo on an outpatient for extended home telemetry monitoring. (2) HTN (hypertension) Current Visit: Yes Status: Acute Code(s): I10 - ESSENTIAL (PRIMARY) HYPERTENSION SNOMED Code(s): 13074306 Comment: -Continue metoprolol. Per recommendation of Dr. Juarez, started patient on amlodipine. Because blood pressures have been soft, HCTZ discontinued all together. (3) Diabetes type 2, controlled Current Visit: Yes Status: Acute Code(s): E11.9 - TYPE 2 DIABETES MELLITUS WITHOUT COMPLICATIONS SNOMED Code(s): 47728590 Comment: -Not currently on medication. Fingersticks ordered BID. (4) GERD (gastroesophageal reflux disease) Current Visit: Yes Status: Acute Code(s): K21.9 - GASTRO-ESOPHAGEAL REFLUX DISEASE WITHOUT ESOPHAGITIS SNOMED Code(s): 492989207 Comment: -Asymptomatic. Continue pantoprazole. (5) DVT prophylaxis Current Visit: No Status: Acute Code(s): VMN6129 - SNOMED Code(s): 330427139 Comment: -Continue lovenox. (6) Elevated troponin Current Visit: No Status: Acute Code(s): R79.89 - OTHER SPECIFIED ABNORMAL FINDINGS OF BLOOD CHEMISTRY SNOMED Code(s): 120664065 Comment: -Resolved. (7) Full code status Current Visit: No Status: Acute Code(s): Z78.9 - OTHER SPECIFIED HEALTH STATUS SNOMED Code(s): 592196966 Status and Disposition: Condition: Guarded Disposition: Admit inpatient. Attending: Alana Petersen
[2019-08-06] MEDS: Aspirin EC TAB* 81 MG TAB.EC PO SCH (08:56)
[2019-08-06] MEDS: Pantoprazole TAB * 40 MG TAB PO SCH (08:56)
[2019-08-06] MEDS: Metoprolol Tartrate TAB* 25 MG PO SCH (08:56)
[2019-08-06] MEDS: amLODIPine TAB* 5 MG PO SCH (08:56)
[2019-08-06] MEDS: Cyanocobalamin TAB* 500 MCG PO SCH (08:56)
[2019-08-06 11:19] VITALS: BP 132/93
--- NOTE | 2019-08-07 03:56 | DS ---
CC: Dr. Ortiz; Dr. Etienne * DISCHARGE SUMMARY: DATE OF ADMISSION: 08/02/19 DATE OF DISCHARGE: 08/06/19 ATTENDING PHYSICIAN WHILE IN THE HOSPITAL: Dr. Kota Caban * (dictated by DAVIS Pedersen) PRIMARY CARE PROVIDER: Dr. Ortiz. CONSULTING BREAKDOWN PERSON: Dr. Etienne. PRIMARY DIAGNOSES: 1. Chest pain likely related to episodes of tachycardia. 2. Second-degree atrioventricular block, Mobitz I. SECONDARY DIAGNOSES: 1. Hypertension. 2. Hyperlipidemia. 3. Diabetes mellitus, diet controlled. 4. Status post gastric bypass. 5. Gastroesophageal reflux disease. 6. History of angina. PROCEDURES WHILE IN THE HOSPITAL: Cardiac catheterization on 08/05/[address] Juarez. Please see full report for details, however, in brief : Overall no significant stenotic coronary artery disease with normal left ventricular end- diastolic pressure. PERTINENT STUDIES WHILE IN THE HOSPITAL: Echocardiogram on 08/02/19, EF of 60% to 65%, wall motion is normal without regional wall motion abnormalities. No significant diastolic dysfunction. Please see full report for further details. Chest x-ray, on 08/02/19: No evidence for acute intrathoracic disease. PERTINENT LAB DATA: Troponin peak 0.09, hemoglobin A1c 6.5. HISTORY OF PRESENT ILLNESS/HOSPITAL COURSE: Sade Bernabe is a 44-year-old white female with a past medical history significant for diet-controlled diabetes mellitus, status post gastric bypass, hypertension, hyperlipidemia, history of angina, and GERD, who presented to emergency department on 08/02/19 for chest pain. She additionally was feeling palpitations that were ongoing for several hours and she called her primary care provider to discuss this and was directed to emergency department. Please see admitting history and physical written by DAVIS Alarcon, for further details. In brief, the patient was initially found to have an elevated troponin, which peaked at 0.09 downtrended with initial T-wave inversions in only aVF and otherwise EKG without ischemic changes. She was started on telemetry and her heart was monitored while she was in hospital. A stress test was performed which was nondiagnostic and therefore cardiac catheterization was recommended by Dr. Etienne, who is an interventional radiologist, who saw the patient in consultation. Dr. Juarez performed the cardiac catheterization and found no significant stenosis and question whether it is possible that the patient was having vasospasms or paroxysmal SVT. Upon review of her telemetry on the date of discharge, it was found that despite the patient having been started on metoprolol, she was having breakthrough episodes of tachycardia. Upon further detailed review of these, the patient was appearing to have Wenckebach while she was tachycardiac and then later returning to a regular rate and in fact the metoprolol 12.5 mg b.i.d. was making her bradycardic into the 40s and low 50s even after activity. The patient, however, on day of discharge was asymptomatic of these brief episodes of tachycardia. The patient was started on amlodipine as well and in case there was any vasospasm, and Lipitor was increased given her elevated LDL and her overall risk. At this point, ACS has been ruled out and most likely cause of her chest pain is likely sustained tachycardia which has been well controlled thus far with her medication changes. The patient's hemoglobin A1c was found to be 6.5 indicating overall good control of her blood glucose and otherwise, her home medications were continued. PHYSICAL EXAMINATION ON DAY OF DISCHARGE: General: Obese, young white female lying upright in hospital bed, appearing comfortable, in no acute distress. Eyes: PERRL. Sclerae anicteric. Chest: Regular rate and rhythm without murmurs, rubs, or gallops. Lungs: Clear to auscultation throughout. Skin: Warm, dry, and intact. Neuro: The patient is alert and oriented x3. No focal deficits and able to move all 4 extremities. DISCHARGE PLAN: Diet: Regular unrestricted diet. Activity: The patient may return to regular activity as tolerated. DISCHARGE FOLLOWUP: The patient is to follow up with Dr. Etienne in office as scheduled for cardiac catheterization site check. I have advised her to follow up with cable engineer within 1 month or sooner if possible. She was provided with the [facility] Cardiology office number. Additionally, if she could see her cable engineer associated with her primary care provider's office. I have provided her with a printout of her telemetry in which I noted Wenckebach and instructed her to bring this to her office visit with Cardiology. At this point , it could be determined if further Holter monitoring needs to be occurring or if any other medication needs a change. I did heavily emphasize to the patient to please return to emergency department should she experience any chest pain, sustain palpitations, difficulty breathing, dizziness, lightheadedness, loss of consciousness, or other concerning symptoms. DISCHARGE MEDICATIONS: New medications: 1. Tylenol 650 mg p.o. q.4 hours p.r.n. pain. 2. Lipitor 40 mg p.o. daily. 3. Metoprolol succinate 12.5 mg p.o. at bedtime. 4. Amlodipine 2.5 mg p.o. daily. Continued home medications: 1. Omeprazole 40 mg p.o. daily. 2. Cyanocobalamin 1000 mcg p.o. daily. Discontinued home medications: 1. Hydrochlorothiazide 12.5 mg p.o. daily. CONDITION ON DISCHARGE: Stable. DISPOSITION: Home. TIME SPENT: Approximately 45 minutes was spent on this discharge, approximately half that time was spent at bedside evaluating the patient, counseling the patient, and discussing the plan of care. DAVIS PEDERSEN [id number]/[facility] #: [id number] MTDD
== END 2019-08-06 12:00 | disposition home or self-care (01) | DRG 287 ==
LOC: ED 08:32 → MEDTELE 11:46 → OBSVTOIN 12:00
PROVIDERS: ADMIT Internal Medicine; ATTEND Internal Medicine
PROC: B211YZZ Fluoroscopy of Multiple Coronary Arteries using Other Contrast (ICD-10-PCS; 2019-08-05)
PROC: B215YZZ Fluoroscopy of Left Heart using Other Contrast (ICD-10-PCS; 2019-08-05)
PROC: 4A023N7 Measurement of Cardiac Sampling and Pressure, Left Heart, Percutaneous Approach (ICD-10-PCS; principal; 2019-08-05 08:15)
DX: R00.0 Tachycardia, unspecified (principal); R07.9 Chest pain, unspecified; I44.1 Atrioventricular block, second degree; I10 Essential (primary) hypertension; E78.5 Hyperlipidemia, unspecified; E11.9 Type 2 diabetes mellitus without complications; K21.9 Gastro-esophageal reflux disease without esophagitis; R74.8 Abnormal levels of other serum enzymes; E66.01 Morbid (severe) obesity due to excess calories; Z98.84 Bariatric surgery status; Z68.37 Body mass index [BMI] 37.0-37.9, adult; Z79.899 Other long term (current) drug therapy; Z88.2 Allergy status to sulfonamides; Z88.1 Allergy status to other antibiotic agents; Z91.030 Bee allergy status; Z83.3 Family history of diabetes mellitus; Z80.0 Family history of malignant neoplasm of digestive organs; Z80.6 Family history of leukemia; Z80.8 Family history of malignant neoplasm of other organs or systems
CPT/HCPCS: 36415; 71045; 76937; 80053; 80061; 81003; 83036; 83690; 84443; 84484; 84702; 85025; 85379; 85610; 90732; 93005; 93306; 93458; 99285; A9270-GY; C8929; J1644; J1650; J2250; J2405; J3010

== ENCOUNTER 2019-08-09 19:22 | Emergency (ER) | payer SELFPAY ==
--- NOTE | 2019-08-09 20:03 | ED ---
Upper Extremity Pain - HPI Summary HPI Summary: Patient is a 44 y/o F presenting to the ED for a chief complaint of right forearm swelling and ecchymosis. Patient is present with her . Patient states that she had a myocardial infarction on 08/01/19 and had a cardiac catheterization without stent placement on 08/05/19. On 08/09/19, patient took a shower for the first time since her surgery and after attempting to put a sock on her foot, she noticed that she had swelling and ecchymosis to the right forearm. Patient called Dr. Torrez who recommended the patient be seen at [facility]. PMHx is significant for [place] and HTN. PSHx is significant for . Allergies noted. Patient denies any tobacco, alcohol, or drug use. - History of Current Complaint Chief Complaint: EDExtremityUpper Stated Complaint: SWOLLEN RT ARM PER PT Time Seen by Provider: 08/09/19 19:40 Hx Obtained From: Patient Hx Last Menstrual Period: doesnt have it anymore Mechanism Of Injury: Other - Recent cardiac cath Onset/Duration: Atraumatic, Still Present Timing: Constant Severity Initially: Moderate Severity Currently: Moderate Pain Location: Forearm - Right Aggravating Factor(s): Nothing Alleviating Factor(s): Nothing Associated Signs & Symptoms: Positive: Swelling - Right forearm, Bruising - Right forearm - Allergies/Home Medications Allergies/Adverse Reactions: Allergies Allergy/AdvReac Type Severity Reaction Status Date / Time bee venom protein (honey bee) Allergy Anaphylatic Verified 08/02/19 08:53 Shock clindamycin Allergy Hives Verified 08/02/19 08:53 Sulfa (Sulfonamide Allergy Hives Verified 08/02/19 08:53 Antibiotics) PMH/Surg Hx/FS Hx/Imm Hx Previously Healthy: Yes Endocrine/Hematology History: Reports: Hx Diabetes - hx of-off all meds. s/p gastric bypass Denies: Hx Anticoagulant Therapy, Hx Thyroid Disease, Other Endocrine/ Hematological Disorders Cardiovascular History: Reports: Hx Angina, Hx Hypercholesterolemia, Hx Hypertension - hx of-off all meds. s/p gastric bypass, Hx Myocardial Infarction , Other Cardiovascular Problems/Disorders - hyperlipidemia Denies: Hx Coronary Artery Disease, Hx Valvular Heart Disease Respiratory History: Reports: Hx Asthma, Hx Sleep Apnea Denies: Hx Chronic Obstructive Pulmonary Disease (COPD), Other Respiratory Problems/Disorders GI History: Reports: Hx Gastroesophageal Reflux Disease, Other GI Disorders - gastric bypass 2013 Denies: Hx Ulcer History: Denies: Hx Chronic Renal Failure, Other Problems/Disorders Musculoskeletal History: Denies: Hx Fibromyalgia, Other Musculoskeletal History Sensory History: Reports: Hx Contacts or Glasses - GLASSES Denies: Hx Legally Blind, Hx Deafness, Hx Hearing Aid, Other Sensory Impairments Opthamlomology History: Reports: Hx Contacts or Glasses - GLASSES Denies: Hx Legally Blind, Other Sensory Impairments EENT History: Denies: Hx Deafness Neurological History: Denies: Hx CVA, Hx Dementia, Hx Developmental Delay, Hx Headaches, Hx Migraine, Hx Nerve Disease, Hx Peripheral Neuropathy, Hx Seizures, Hx Spinal Cord Injury, Hx Transient Ischemic Attacks (TIA), Other Neuro Impairments/ Disorders Psychiatric History: Reports: Hx Depression Denies: Hx Schizophrenia, Hx Bipolar Disorder, Other Psychiatric Issues/ Disorders - Surgical History Surgical History: Yes Surgery Procedure, Year, and Place: 2011 - Lining of Uterus removed x2, 1992, 2001. GASTRIC BYPASS , 2013, [facility] Hx Anesthesia Reactions: No - Immunization History Date of Tetanus Vaccine: UTD Date of Influenza Vaccine: 2012 Infectious Disease History: No Infectious Disease History: Denies: Hx Clostridium Difficile, Hx Hepatitis, Hx Human Immunodeficiency Virus (HIV), Hx of Known/Suspected MRSA, Hx Shingles, Hx Tuberculosis, Hx Known/ Suspected VRE, Hx Known/Suspected VRSA, History Other Infectious Disease, Traveled Outside the [place] in Last 30 Days - Family History Known Family History: Positive: Hypertension, Diabetes Negative: Blood Disorder - Social History Occupation: Unemployed Lives: With Family Alcohol Use: None Hx Substance Use: No Substance Use Type: Reports: None Hx Tobacco Use: No Smoking Status (MU): Never Smoked Tobacco Review of Systems Positive: Edema - Right forearm Positive: Bruising - Right forearm All Other Systems Reviewed And Are Negative: Yes Physical Exam - Summary Physical Exam Summary: Constitutional: Well-developed, Well-nourished, Alert. (-) Distressed Skin: Warm, Dry HENT: Normocephalic; Atraumatic Eyes: Conjunctiva normal Neck: Musculoskeletal ROM normal neck. (-) JVD, (-) Stridor, (-) Tracheal deviation Cardio: Rhythm regular, rate normal, Heart sounds normal; Intact distal pulses; Radial pulses are 2+ and symmetric. (-) Murmur Pulmonary/Chest wall: Effort normal. (-) Respiratory distress, (-) Wheezes, (-) Rales Abd: Soft, (-) tenderness, (-) Distension, (-) Guarding, (-) Rebound Musculoskeletal: Puncture site on the right forearm, swelling of the right wrist , full ROM of the wrist and hand. Lymph: (-) Cervical adenopathy Neuro: Alert, Oriented x3 Psych: Mood and affect Normal Triage Information Reviewed: Yes Vital Signs On Initial Exam: Initial Vitals Temp Pulse Resp BP Pulse Ox 98.2 F 64 18 134/93 99 08/09/19 19:25 08/09/19 19:25 08/09/19 19:25 08/09/19 19:25 08/09/19 19:25 Vital Signs Reviewed: Yes Procedures - Sedation Patient Received Moderate/Deep Sedation with Procedure: No Diagnostics - Vital Signs Vital Signs Temp Pulse Resp BP Pulse Ox 08/09/19 19:25 98.2 F 64 18 134/93 99 - Laboratory Lab Statement: Any lab studies that have been ordered have been reviewed, and results considered in the medical decision making process. Re-Evaluation - Re-Evaluation First Eval Re-Evaluation Time: 20:33 Change: Improved Comment: At 20:33, there is no expanding of the hematoma. Course/Dx - Course Course Of Treatment: Patient is here with hematoma to the right wrist at the site of radial artery puncture from Monday. Patient's hematoma is very small in nature. Patient has positive radial pulse. Patient has full range motion at her wrist and fingers. Patient had a pressure dressing applied with reduction of her hematoma. Patient has no evidence of active extravasation. Patient is discharged with PCP and cardiology follow-up. - Diagnoses Provider Diagnoses: Postoperative complication, Hematoma Discharge ED - Sign-Out/Discharge Documenting (check all that apply): Patient Departure - Discharge - Discharge Plan Condition: Stable Disposition: HOME Patient Education Materials: Hematoma (ED) Referrals: Leny Ortiz MD [Primary Care Provider] - Additional Instructions: PLEASE RETURN TO EMERGENCY DEPARTMENT FOR ANY SWELLING IN FRONT OF YOUR EYES, SWELLING THAT IS CONCERNING, OR ANY NEW OR WORSENING SYMPTOMS. Please follow up with your primary care physician. Follow up with your seam presser. Please make all follow-ups in 1-3 days unless I advise you otherwise. - Billing Disposition and Condition Condition: STABLE Disposition: Home - Attestation Statements Document Initiated by Scribe: Yes Documenting Scribe: Darline Weiss Provider For Whom Johnibpancho is Documenting (Include Credential): Chandan Bird MD Scribe Attestation: Darline Orr, scribed for Chandan Bird MD on 08/09/19 at 2050. Scribe Documentation Reviewed: Yes Provider Attestation: The documentation as recorded by the Darline garcia accurately reflects the service I personally performed and the decisions made by , Chandan Bird MD Status of Scribe Document: Viewed
--- OUTSIDE RECORDS SUMMARY | 2019-08-09 20:16 | XMS REPORT | Continuity of Care Document ---
:1975 External Reference #:[id number] Author Name Nasir Moses M.D. (transmitted by agent of provider Harini Valdovinos) Address [address] [place] [id number] Care Team Providers Name Role Phone Didier Torrez MD - Gastroenterology Care Team Information Recreation Therapy Aides Teacher Sparkle Singh MD - Surgery Care Team Information Recreation Therapy Aides Teacher [phone] Leny Ortiz MD - Family Care Team Information Recreation Therapy Aides Teacher Medicine Problems Active Problems Provider Date Nausea and vomiting Rodolfo Bansal M.D. Onset: 04/23/2015 History of bariatric surgical procedure Rodolfo Bansal M.D. Onset: 04/23/2015 Gastroesophageal reflux disease Rodolfo Bansal M.D. Onset: 09/22/2015 Vitamin D deficiency Rodolfo Bansal M.D. Onset: 09/22/2015 Allergy to bee venom Benjamin Bang M.D. Onset: 02/04/2016 Headache Benjamin Bang M.D. Onset: 12/07/2016 Insomnia Benjamin Bang M.D. Onset: 12/07/2016 Social History Type Date Description Comments Sex Unknown Tobacco Use Start: Unknown Never Smoked Cigarettes ETOH Use Denies alcohol use Recreational Drug Use Denies Drug Use Tobacco Use Start: Unknown Patient has never smoked Exercise Type/Frequency Gymn: 3 times a week. Allergies, Adverse Reactions, Alerts Active Allergies Reaction Severity Comments Date Sulfa hives Severe hives 11/21/2005 Cholestyramine Nausea and Vomiting Severe 04/23/2015 Bee Sting tongue swells, impaired breath Severe 04/23/2015 Medications Active Medications SIG Qnty Indications Ordering Date Provider Diflucan 1 tablet one 2tabs [place] 05/26/2017 150mg Tablets time. may repeat Marixa Bang 3 days later if needed Sumatriptan Succinate use at onset of 9tabs R51 [place] 12/07/2016 head ache,may Marixa Bang 100mg Tablets repeat after 2h as needed Amitriptyline HCL take 1-2 tablets 60tabs R51 [place] 12/07/2016 10mg at bedtime Marixa Bang Tablets Tylenol Extra Strength 2 tablets every 6 G44.209 Kel Pérez NP 2015 hours up to 3 500mg Tablets times a day as needed for pain Benadryl take 2 tablets up 30caps Other Ordering 02/01/2016 25mg Capsules to every 6 hours Provider as needed for allergic reaction Ondansetron HCL 1 tablet by mouth 60tabs R11.2 Juan Luis Villa 04/23/2015 4mg three times a Marixa Baldwin,FACP Tablets day, as needed Epipen 2-Anthony use as directed 2units [place] 0.3mg/0.3ML Marixa Bang Solution Auto-Inject Omeprazole 1 by mouth every 30caps [place] 20mg Capsules day Marixa Bang DR CPT Code Status Date Vaccine Lot # [id number] Given 04/28/2016 Influ Virus Vaccine, Quadrivalent, Split Virus, [place] [id number] [id number] Given 04/28/2016 Influ Virus Vaccine, Quadrivalent, Split Virus, [place] [id number] [id number] Given 05/15/2015 Influenza Virus Vaccine, Quadrivalent, Split, [id number] Preservative Free Vital Signs Date Vital Result Comment 12/07/2016 9:33am Height 63.75 inches 5'3.75" Weight 179.00 lb Heart Rate 54 /min BP Systolic Sitting 132 mmHg BP Diastolic Sitting 80 mmHg O2 % BldC Oximetry 98 % BMI (Body Mass Index) 31.0 kg/m2 07/11/2016 8:12am Weight 171.50 lb Heart Rate 61 /min BP Systolic Sitting 158 mmHg BP Diastolic Sitting 90 mmHg Body Temperature 986.0 F O2 % BldC Oximetry 98 % Results Description No Information Available Procedures Description No Information Available Medical Devices Description No Information Available Encounters Description No Information Available Assessments Description No Information Available Plan of Treatment Future Appointment(s):08/13/2019 3:00 pm - Thomas Etienne MD, FAC, [facility] [place] [facility] [place] - Benjamin Bang M.D.Z00.00 Encounter for general adult medical examination without abnormal [id number] Gastro-esophageal reflux disease without esophagitisComments:Avoid caffeine and spicy foods. Have your dinner at least 2-3 hours before you go to sleep. Should keep head end of the bed elevated. Should also avoid medications like ibuprofen , Motrin or Aleve.E55.9 Vitamin D deficiency, [id number] HeadacheNew Medication:Sumatriptan Succinate 100 mg - use at onset of head ache,may repeat after 2h as neededAmitriptyline HCL 10 mg - take 1-2 tablets at bedtimeComments: This is most likely migrain headaches.Follow up:6 wdjnoR68.00 Insomnia, unspecifiedComments:Go to bed only when you're sleepy. Don't lie in bed when you're awake can become a habit that leadsto poor sleep. Regular exercise can help you get better sleep. Keep your bedroom quiet, dark and cool. Meditation helps you calm your mind and body. Paradoxically, worrying that you can't sleep can actually keep you awake. . Avoid coffee, tea, and other foods that have caffeine, alcohol and smoking,in the late afternoon, evening, and bedtime. Avoid watching TV an hour before you go to bed.You can try over the counter melatonin at bed time.one glass of warn milk and and warm shower before sleep may help to sleep better.Z12.39 Encounter for other screening for malignant neoplasm of breast Functional Status Description No Information Available Mental Status Description No Information Available Referrals Description No Information Available
--- OUTSIDE RECORDS SUMMARY | 2019-08-09 20:16 | XMS REPORT | Continuity of Care Document ---
:1975 External Reference #:[id number] Author Name Nasir Moses M.D. (transmitted by agent of provider Harini Valdovinos) Address [address] [place] [id number] Care Team Providers Name Role Phone Didier Torrez MD - Gastroenterology Care Team Information Gravel Roofer [phone] Sparkle Singh MD - Surgery Care Team Information Gravel Roofer Leny Ortiz MD - Family Care Team Information Gravel Roofer Medicine Problems Active Problems Provider Date Nausea [...] Date Provider Diflucan 1 tablet one 2tabs [place] 05/26/2017 150mg Tablets time. may repeat Marixa Bang 3 days later if needed Sumatriptan Succinate use at onset of 9tabs R51 [place] 12/07/2016 head ache,may Marixa Bang 100mg Tablets repeat after 2h as needed Amitriptyline HCL take 1-2 tablets 60tabs R51 [place] 12/07/2016 10mg at bedtime Marixa Bang Tablets [...] Villa 04/23/2015 4mg three times a Marixa Baldiwn,FACP Tablets day, as needed Epipen 2-Anthony use as directed 2units [place] 0.3mg/0.3ML Marixa Bang Solution Auto-Inject Omeprazole 1 by mouth every 30caps [place] 20mg Capsules day Marixa Bang DR CPT Code Status Date Vaccine Lot # [id number] Given 04/28/2016 Influ Virus Vaccine, Quadrivalent, Split Virus, [place] [id number] [id number] Given 04/28/2016 Influ Virus Vaccine, Quadrivalent, Split Virus, [place] [id number] [id number] Given 05/15/2015 Influenza Virus Vaccine, Quadrivalent, Split, [...] 3:00 pm - Thomas Etienne MD[place]AC, [facility] [place] [facility] AT [facility] [place]/07/2016 - Benjamin Bang M.D.Z00.00 Encounter for general adult medical examination without abnormal xxxnjgyfS65.9 Gastro-esophageal reflux disease without esophagitisComments:Avoid caffeine and spicy foods. Have your dinner at least 2-3 hours before you go to sleep. Should keep head end of the bed elevated. Should also avoid medications like ibuprofen , Motrin or Aleve.E55.9 Vitamin D deficiency, [id number] HeadacheNew Medication:Sumatriptan Succinate 100 mg - use at onset of head ache,may repeat after 2h as neededAmitriptyline HCL 10 mg - take 1-2 tablets at bedtimeComments: This is most likely migrain headaches.Follow up:6 [id number] Insomnia, unspecifiedComments:Go to bed only when you're [...]
[2019-08-09 20:49] VITALS: BP 128/74
== END 2019-08-09 20:54 | disposition home or self-care (01) ==
LOC: ED 19:22
DX: L76.32 Postprocedural hematoma of skin and subcutaneous tissue following other procedure (principal); E11.9 Type 2 diabetes mellitus without complications; E78.00 Pure hypercholesterolemia, unspecified; I10 Essential (primary) hypertension; I25.2 Old myocardial infarction; E78.5 Hyperlipidemia, unspecified; K21.9 Gastro-esophageal reflux disease without esophagitis; F32.9 Major depressive disorder, single episode, unspecified; Z98.84 Bariatric surgery status; Z88.1 Allergy status to other antibiotic agents; Z88.2 Allergy status to sulfonamides
CPT/HCPCS: 99282

== ENCOUNTER 2019-09-03 05:47 | Emergency (ER) | payer SELFPAY ==
--- OUTSIDE RECORDS SUMMARY | 2019-09-03 06:05 | XMS REPORT | Summary of Care ---
:1975 Author Organization [facility] Address [address] [address] Care Team Providers Name Role Phone Leny Ortiz Primary Care Provider Reason for Visit Reason Comments Transitional Care Management chest pain , cardiac cath Encounter Details Date Type Department Care Team Description 08/13/2019 Office Visit [facility] Diana, Palpitations (Primary Dx); Practice MD Leny Elevated troponin; [address] [place] [address] [place] [address] [phone] Allergies Active Allergy Reactions Severity Noted Date Comments Bee Anaphylaxis High 06/21/2017 Clindamycin Hcl Rash 06/21/2017 Sulfa Antibiotics Rash 06/21/2017 documented as of this encounter (statuses as of 08/13/2019) Medications Medication Sig Dispensed Refills Start End Date Status Date acetaminophen (TYLENOL) Take 500 mg 0 Active 500 MG Oral Tab by mouth EVERY SIX HOURS NEEDED for Pain. cholecalciferol Take 1,000 0 Active (VITAMIN D) 1000 units Units by Oral Tab mouth. Omeprazole 40 MG Oral TAKE 1 90 Cap 0 Active CAPSULE DELAYED RELEASE CAPSULE BY 9 MOUTH ONCE DAILY metoprolol succinate 25 mg 0 Active (TOPROL XL) 25 MG Oral DAILY. Half 0 TABLET SR 24 HR tab daily 12.5 atorvastatin (LIPITOR) 40 mg 0 Active 40 MG Oral Tab DAILY. 0 amLodipine (NORVASC) 5 2.5 mg 0 Active MG Oral Tab DAILY. 2.5 0 daily hydrochlorothiazide TAKE 1 90 Cap 1 08/13/19 Discontinued (No (HCTZ, ORETIC) 12.5 MG CAPSULE BY 9 20 longer Oral Cap MOUTH ONCE clinically DAILY indicated) documented as of this encounter (statuses as of 08/13/2019) Active Problems Problem Noted Date Essential hypertension 11/01/2017 documented as of this encounter (statuses as of 08/13/2019) Immunizations Name Administration Dates Next Due Influenza [...] Sign Reading Time Taken Comments Blood Pressure 102/76 08/13/2019 1:22 PM EST Pulse 66 08/13/2019 1:22 PM EST Temperature 37.3 08/13/2019 1:22 PM EST C (99.2 F) Respiratory Rate - - Oxygen Saturation 98% 08/13/2019 1:22 PM EST Inhaled Oxygen Concentration - - Weight 99 kg (218 lb 3.2 oz) 08/13/2019 1:22 PM EST Height 162.6 cm (5' 4") 08/13/2019 1:22 PM EST Body Mass Index 37.45 08/13/2019 1:22 PM EST documented in this encounter Progress Notes Leny Ortiz MD - 08/13/2019 1:20 PM EST Patient: Sade Bernabe Date of Service: 08/13/2019 Subjective: Sade Bernabe is a 44-y.o. female who presents for Chief Complaint Patient presents with Transitional Care Management chest pain , cardiac cath TCM Statement. Review of the hospitalization: I am seeing for transition of care following hospitalization. The date of discharge was: 08/06/19 The discharge diagnosis was Chest pain due to tachycardia. Second degree AV block Mobitz 1. I reviewed the discharge summary, discharge instructions, and pertinent additional documentation obtained during hospitalization. I reconciled the medications. I also reviewed the Transition of Care documentation done by staff. The tests that were not available at the time of discharge were reviewed. Additional tests which are not yet available include: none Coordination of care. (delete one and this phrase) - I am satisfied that appropriate referrals are in place to deal with the problems identified during hospitalization, and that the patient has adequate community resources and support in place. - Additional testing related to hospitalization was requested today: yes See orders. I confirmed the patient's understanding of the diagnosis and plan of care. Specific education that was provided today: There are no Patient Instructions on file for this visit. The current and discharge medications were reconciled by me, today The source document was hospital discharge summary Patient presented [facility] on the day of admission with complains of palpitations, chest pain EKG at the presentation showed sinus rhythm with nonspecific ST changes in inferior leads. Troponin was mildly elevated : 0.08 - 0.09 - 0.07 Stress test was equivocal so cardiac Cath- was done on 08/05/19 which didn't show any significant CAD, normal LV function. The symptoms were attributed to vasospasm vs SVT. Patient was started on Metoprolol and Norvasc Patient also was noticed on the monitor to have brief episodes of Mobitz 1 AV block, bradycardia Patient was discharged home She has appointment with cardiology today Past Medical History: Diagnosis Date Hyperlipidemia Hypertension Outpatient Medications as of 08/13/2019 Medication Sig Dispense Refill acetaminophen (TYLENOL) 500 MG Oral Tab Take 500 mg by mouth EVERY SIX HOURS NEEDED for Pain. amLodipine (NORVASC) 5 MG Oral Tab 2.5 mg DAILY. 2.5 daily atorvastatin (LIPITOR) 40 MG Oral Tab 40 mg DAILY. cholecalciferol (VITAMIN D) 1000 units Oral Tab Take 1,000 Units by mouth. metoprolol succinate (TOPROL XL) 25 MG Oral TABLET SR 24 HR 25 mg DAILY. Half tab daily 12.5 Omeprazole 40 MG Oral CAPSULE DELAYED RELEASE TAKE 1 CAPSULE BY MOUTH ONCE DAILY 90 Cap 0 No current facility-administered medications on file as of 08/13/2019. Allergies Allergen Reactions Bee Anaphylaxis Clindamycin Hcl Rash Sulfa Antibiotics Rash Review of Systems: All remaining review of systems was negative. Objective: BP 102/76 (BP Location: Left arm, Patient Position: Sitting) Pulse 66 Temp 99.2 F (37.3 C)(Tympanic) Ht 5' 4" (1.626 m) Wt 218 lb 3.2 oz (99 kg) SpO2 98% BMI 37.45 kg/m2 GENERAL: alert, no distress THROAT: lips, mucosa, and tongue normal: teeth and gums normal NECK: supple, symmetrical, trachea midline and no adenopathy LUNGS: clear to auscultation bilaterally. Chest wall tenderness in the L cosatachondral area HEART: regular rate and rhythm, S1, S2 normal, no murmur, click, rub or gallop EXTREMITIES: extremities normal, atraumatic, no cyanosis or edema EKG: there are no previous tracings available for comparison, sinus bradycardia. ICD-9-CM ICD-10-CM 1. Palpitations Patient will follow with cardiology for further evaluation: monitor? EP study? 785.1 R00.2 AMBULATORY 12 LEAD EKG (GLOBAL) 2. Elevated troponin Likely due to tachycardia 790.6 R79.89 AMBULATORY 12 LEAD EKG (GLOBAL) 3. Dyslipidemia 272.4 E78.5 Schedule fating blood tests in 2 months Follow up after the tests and as needed Author: Leny Ortiz MD documented in this encounter Plan of Treatment Date Type Specialty Care Team Description 08/14/2019 Ancillary Procedure Radiology 10/11/2019 Lab Internal Medicine 10/18/2019 Office Visit Family Practice Leny Ortiz MD [address] [place] [address] [phone] Name Type Priority Associated Diagnoses Order Schedule AMBULATORY 12 LEAD EKG EKG Routine Palpitations Ordered: 08/13/2019 (GLOBAL) Elevated troponin COMPREHENSIVE METABOLIC Lab Routine Dyslipidemia Expected: 08/13/2019 PANEL (Approximate), Expires: 08/13/2020 LIPID PROFILE Lab Routine Dyslipidemia Expected: 08/13/2019 (Approximate), Expires: 08/13/2020 Health Maintenance Due Date Last Done Comments DTaP/Tdap/Td Vaccines ( - 1984 Tdap) MAMMOGRAM (SCREENING) 07/18/2018 07/18/2017 DIABETES SCREENING 05/10/2019 05/10/2018, 06/21/2017 PAP SMEAR 07/18/2020 07/18/2017 DEPRESSION SCREENING 08/01/2020 08/01/2019 LIPID DISORDER SCREENING 08/13/2020 08/13/2019, 05/10/2018 INFLUENZA VACCINE Completed 08/01/2019, 05/28/2018, 07/18/2017 HEPATITIS A IMMUNIZATION Aged Out No longer [...] Type Problems Progress Blood Pressure Blood Pressure 102/76 No Diana, < 140/90 (08/13/2019 Leny, 1:22 PM EST) Note: This is an individualized treatment (blood pressure) goal for Sade Bernabe: Displayed above (on the left) is your goal for blood pressure control. Your most recent blood pressure is also shown above, on the right. You should try to achieve blood pressures that are lower than your goal listed above (on the left). Weight loss vs. 18 mo Lifestyle 1.8 (08/13/2019 1:22 PM No eLny Ortiz MD max (lbs) >= 10 EST) [...] filedocumented in this encounter Visit Diagnoses Diagnosis Palpitations Elevated troponin Other abnormal blood chemistry Dyslipidemia Other and unspecified hyperlipidemia documented in this encounter
--- OUTSIDE RECORDS SUMMARY | 2019-09-03 06:05 | XMS REPORT | Continuity of Care Document ---
:1975 External Reference #:[id number] Author Name Thomas Etienne MD, [facility], [facility] (transmitted by agent of provider Haley Asher) Address [address] [place] [id number] Care Team Providers Name Role Phone Didier Torrez MD - Gastroenterology Care Team Information Accountant Supervisor [phone] Sparkle Singh MD - Surgery Care Team Information Accountant Supervisor Leny Ortiz MD - Family Care Team Information Accountant Supervisor Medicine Problems Active Problems Provider Date Nausea and vomiting Rodolfo Bansal M.D. Onset: 04/23/2015 History of bariatric surgical Rodolfo Bansal M.D. Onset: 04/23/2015 procedure Gastroesophageal reflux disease Rodolfo Bansal M.D. Onset: 09/22/2015 Vitamin D deficiency Rodolfo Bansal M.D. Onset: 09/22/2015 Allergy to bee venom Benjamin Bang M.D. Onset: 02/04/2016 Headache Benjamin Bang M.D. Onset: 12/07/2016 Insomnia Benjamin Bang M.D. Onset: 12/07/2016 Paroxysmal supraventricular Thomas Etienne MD, [facility], Onset: 08/13/2019 tachycardia [facility] Chest pain Thomas Etienne MD, [facility], Onset: 08/13/2019 FSCAI Social History Type Date Description Comments Sex Unknown Tobacco Use Start: Unknown Never Smoked Cigarettes ETOH Use Denies alcohol use Recreational Drug Use Denies Drug Use Tobacco Use Start: Unknown Patient has never smoked Smoking Status Reviewed: 08/13/19 Patient has never smoked Exercise Type/Frequency Exercises regularly gym 3x weekly Allergies, Adverse Reactions, Alerts Active Allergies Reaction Severity Comments Date Sulfa hives Severe hives 11/21/2005 Cholestyramine Nausea and Vomiting Severe 04/23/2015 Bee Sting tongue swells, impaired breath Severe 04/23/2015 Medications Active Medications SIG Qnty Indications Ordering Date Provider Complete Multivitamin Take one tablet Unknown 08/12/2019 once daily Omeprazole 1 by mouth Unknown 08/12/[address] every day Amlodipine Besylate 1/2 tablet by Unknown 08/12/2019 5mg Tablets mouth every day Atorvastatin Calcium 1 by mouth Unknown 08/12/2019 40mg Tablets every day Metoprolol Succinate ER 1/2 tablet by Unknown 08/12/2019 25mg mouth every day Tablets ER 24HR Hydrochlorothiazide 1 by mouth Unknown 08/12/2019 12.5mg every day Capsules Vit B12 500 mcg Take two Unknown 08/12/2019 tablets once daily Tylenol Extra Strength 2 tablets every G44.209 Kel Beto, 07/11/2016 500mg 6 hours up to 3 NEGATIVE TURNER APPRENTICE Tablets times a day as needed for pain Epipen 2-Anthony use as directed caitlyn Alexander 0.3mg/0.3ML Solution Marixa Bang Auto-Inject Immunizations CPT Code Status Date Vaccine Lot # [id number] Given 04/28/2016 Influ Virus Vaccine, Quadrivalent, Split Virus, [place] [id number] [id number] Given 04/28/2016 Influ Virus Vaccine, Quadrivalent, Split Virus, [place] [id number] [id number] Given 05/15/2015 Influenza Virus Vaccine, Quadrivalent, Split, [id number] Preservative Free Vital Signs Date Vital Result Comment 08/13/2019 3:17pm Height 63.75 inches 5'3.75" Weight 219.00 lb w/ shoes Heart Rate 64 /min L. radial, regular BP Systolic Sitting 120 mmHg LA, lg cuff BP Diastolic Sitting 80 mmHg LA, lg cuff BP Systolic Standing 120 mmHg LA, lg cuff BP Diastolic Standing 82 mmHg LA, lg cuff BMI (Body Mass Index) 37.9 kg/m2 Ejection Fraction 60-65% 08/02/19 12/07/2016 9:33am Height 63.75 inches 5'3.75" Weight 179.00 lb Heart Rate 54 /min BP Systolic Sitting 132 mmHg BP Diastolic Sitting 80 mmHg O2 % BldC Oximetry 98 % BMI (Body Mass Index) 31.0 kg/m2 Results Description No Information Available Procedures Description No Information Available Medical Devices Description No Information Available Encounters Description No Information Available Assessments Date Code Description Provider 08/13/2019 R07.9 Chest pain, unspecified Thomas Etienne MD, [facility], [facility] 08/13/2019 I47.1 Supraventricular tachycardia Thomas Etienne MD, [facility], [facility] Plan of Treatment Future Appointment(s):09/18/2019 4:00 pm - David Donahue M.D. at [facility]08/13/2019 - Thomas Etienne MD, [facility], LAWGLQ80.9 Chest pain , [id number] Supraventricular tachycardiaNew Orders:Event Monitor, Ordered : 08/13/19Comments:double Toprol XL to a whole 25 mg tab dailyFollow up:JUAN DIEGO Gong 4-6 weeks Functional Status Description No Information Available Mental Status Description No Information Available Referrals Description No Information Available
--- OUTSIDE RECORDS SUMMARY | 2019-09-03 06:05 | XMS REPORT | Continuity of Care Document ---
:1975 External Reference #:[id number] Author Name Thomas Etienne MD, [facility], [facility] (transmitted by agent of provider Monica Huertas) Address [address] [place] [id number] Care Team Providers Name Role Phone Didier Torrez MD - Gastroenterology Care Team Information Manager Transportation Sparkle Singh MD - Surgery Care Team Information Manager Transportation Leny Ortiz MD - Family Care Team Information Manager Transportation Medicine Problems Active Problems Provider Date Nausea [...] Onset: 12/07/2016 Paroxysmal supraventricular Thomas Etienne MD, [facility], Onset: 08/13/2019 tachycardia [facility] Chest pain Thomas Etienne MD, [facility], Onset: 08/13/2019 FSCAI Social History Type Date [...] 07/11/2016 500mg 6 hours up to 3 SHAPE BRICK MOLDER Tablets times a day as needed for pain Epipen 2-Anthony use as directed caitlyn Alexander 0.3mg/0.3ML Solution Marixa Bang Auto-Inject Immunizations CPT Code Status Date Vaccine Lot # [id number] Given 04/28/2016 Influ Virus Vaccine, Quadrivalent, Split Virus, [place] [id number] [id number] Given 04/28/2016 Influ Virus Vaccine, Quadrivalent, Split Virus, [place] [id number] [id number] Given 05/15/2015 Influenza Virus Vaccine, Quadrivalent, Split, [...] R07.9 Chest pain, unspecified Thomas Etienne MD, [facility], [facility] 08/13/2019 I47.1 Supraventricular tachycardia Thomas Etienne MD, [facility], [facility] Plan of Treatment Future Appointment(s):09/18/2019 4:00 pm - David Donahue M.D. at [facility]08/13/2019 - Thomas Etienne MD, [facility], BTTTIE14.9 Chest pain , unspecifiedNew Xrays:VL Upper Ext Art Duplex Right, Ordered: 08/13/19I47.1 Supraventricular tachycardiaNew Orders:Event Monitor, Ordered: 08/13/19Comments: double Toprol XL to a whole 25 mg tab dailyFollow up:JUAN DIEGO Gong 4-6 weeks Functional Status Description No Information Available Mental Status Description No Information Available Referrals Description No Information Available
[2019-09-03 06:46] LABS: ABS Eosinophils 0.1 10^3/ul (0-0.6); ABS Monocytes 0.4 10^3/ul (0-0.8); ABS Neutrophils 2.8 10^3/ul (1.5-7.7); Eosinophil % 2.6 %; Hematocrit 35 % (35-47); Hemoglobin 12.3 g/dL (12.0-16.0); Lymphocyte % 23.6 %; Mean Corpuscular HGB Conc 35 g/dL (31-36); Mean Corpuscular Hemoglobin 30 pg (27-31); Mean Corpuscular Volume 87 fL (80-97); Mean Platelet Volume 8.8 fL (7.4-10.4); Nucleated Red Blood Cells % 0.1; Platelet Count 237 10^3/uL (150-450); Red Blood Count 4.08 10^6 /uL (3.70-4.87); Red Cell Distribution Width 14 % (10-15); White Blood Count 4.4 10^3/uL (3.5-10.8)
[2019-09-03 06:52] LABS: INR 0.95 (0.82-1.09)
[2019-09-03 07:05] LABS: Albumin/Globulin Ratio 1.4 (1-3); BUN/Creatinine Ratio 15.9 (8-20); Calcium 8.9 mg/dL (8.6-10.3); EGFR African American 83.7 (>60); EGFR Non-African American 69.2 (>60); Globulin 2.8 g/dL (2-4); Magnesium 1.8 mg/dL (1.9-2.7); Total Bilirubin 0.5 mg/dL (0.2-1.0); Total Protein 6.8 g/dL (6.4-8.9)
[2019-09-03 07:29] LABS: T4, Total 7.37 mcg/dL (6.09-12.23)
[2019-09-03 07:33] LABS: TSH (Thyroid Stimulating Horm) 1.08 mcIU/mL (0.34-5.60)
[2019-09-03 08:31] VITALS: BP 126/84
--- NOTE | 2019-09-03 08:37 | ED ---
HPI Chest Pain - HPI Summary HPI Summary: Patient is a 44-year-old female with history of hyperlipidemia and hypertension presenting to the ED with a feeling of left-sided chest pain which she describes as stabbing, rated 10/10, intermittent since approximately 4 AM. Symptoms are currently rated a 2/10. She endorses a slight radiation of pain over to the right side. The left-sided pain is just below the L breast and does not radiate to the back. Patient was seen on 08/02/23 same and was admitted to the hospital. She was noted to have mild elevations of her serial troponins. She also underwent a stress test, echocardiogram and a cardiac catheterization. During stress test, patient did have chest tightness which resolved at rest. Echo revealed an EF of 55-60% with diastolic function intact. Cardiac catheterization revealed a possible paroxysmal SVT or paroxysmal A. fib due to her sustained tachycardia moments during her admission. Recommended outpatient Holter monitor and f/u with cardiology. She was recently started on metoprolol, amlodipine, and atorvastatin. She states since 1 month ago and continuing on her medications, she has not had another episode until this morning. She states this episode was the same as 1 month prior. She was given aspirin in the ambulance. She continues to have mild nausea. Non-smoker, no alcohol use, no drug use. No recent illness. No cough, no congestion, no STALLWORTH. - History of Current Complaint Chief Complaint: EDChestPainROMI Time Seen by Provider: 09/03/19 06:12 Hx Obtained From: Patient Hx Last Menstrual Period: doesnt have it anymore Onset/Duration: Started Hours Ago Time of Onset: 04:00 Timing: Intermittent, Lasting Seconds Initial Severity: Moderate Current Severity: Mild Pain Intensity: 8 Pain Scale Used: 0-10 Numeric Chest Pain Location: Left Lateral Chest Pain Radiates: Yes Chest Pain Radiates To:: Other - right chest Character: Sharp/Stabbing Aggravating Factor(s): Nothing Alleviating Factor(s): Nothing Associated Signs and Symptoms: Positive: Chest Pain. Negative: Vision Changes, Anxiety, Recent Stress, Headaches, Numbness, Tingling, Weakness, Shortness of Breath, Chills, Lightheadedness, Diaphoresis, Cough, Productive Cough, Nonproductive Cough, Vomiting, Wheezing, Nasal Congestion Related History: Similar Episode/Dx as: - 1 month ago - hx of same - full cardiac workup completed - Risk Factors Pulmonary Embolism Risk Factors: Negative TAD Risk Factors: Negative - Additional Pertinent History Primary Care Physician: [place] - Allergy/Home Medications Allergies/Adverse Reactions: Allergies Allergy/AdvReac Type Severity Reaction Status Date / Time bee venom protein (honey bee) Allergy Anaphylatic Verified 09/03/19 06:03 Shock clindamycin Allergy Hives Verified 09/03/19 06:03 Sulfa (Sulfonamide Allergy Hives Verified 09/03/19 06:03 Antibiotics) PMH/Surg Hx/FS Hx/Imm Hx Previously Healthy: Yes Endocrine/Hematology History: Reports: Hx Diabetes - hx of-off all meds. s/p gastric bypass Denies: Hx Anticoagulant Therapy, Hx Thyroid Disease, Other Endocrine/ Hematological Disorders Cardiovascular History: Reports: Hx Angina, Hx Hypercholesterolemia, Hx Hypertension - hx of-off all meds. s/p gastric bypass, Hx Myocardial Infarction , Other Cardiovascular Problems/Disorders - hyperlipidemia Denies: Hx Coronary Artery Disease, Hx Valvular Heart Disease Respiratory History: Reports: Hx Asthma, Hx Sleep Apnea Denies: Hx Chronic Obstructive Pulmonary Disease (COPD), Other Respiratory Problems/Disorders GI History: Reports: Hx Gastroesophageal Reflux Disease, Other GI Disorders - gastric bypass 2013 Denies: Hx Ulcer History: Denies: Hx Chronic Renal Failure, Other Problems/Disorders Musculoskeletal History: Denies: Hx Fibromyalgia, Other Musculoskeletal History Sensory History: Reports: Hx Contacts or Glasses - GLASSES Denies: Hx Legally Blind, Hx Deafness, Hx Hearing Aid, Other Sensory Impairments Opthamlomology History: Reports: Hx Contacts or Glasses - GLASSES Denies: Hx Legally Blind, Other Sensory Impairments Neurological History: Denies: Hx CVA, Hx Dementia, Hx Developmental Delay, Hx Headaches, Hx Migraine, Hx Nerve Disease, Hx Peripheral Neuropathy, Hx Seizures, Hx Spinal Cord Injury, Hx Transient Ischemic Attacks (TIA), Other Neuro Impairments/ Disorders Psychiatric History: Reports: Hx Depression Denies: Hx Schizophrenia, Hx Bipolar Disorder, Other Psychiatric Issues/ Disorders - Surgical History Surgery Procedure, Year, and Place: 2011 - Lining of Uterus removed x2, 1992, 2001. GASTRIC BYPASS , 2013, [place] Hx Anesthesia Reactions: No - Immunization History Date of Tetanus Vaccine: UTD Date of Influenza Vaccine: 2012 Infectious Disease History: No Infectious Disease History: Denies: Hx Clostridium Difficile, Hx Hepatitis, Hx Human Immunodeficiency Virus (HIV), Hx of Known/Suspected MRSA, Hx Shingles, Hx Tuberculosis, Hx Known/ Suspected VRE, Hx Known/Suspected VRSA, History Other Infectious Disease, Traveled Outside the [place] in Last 30 Days - Family History Known Family History: Positive: Hypertension, Diabetes Negative: Blood Disorder - Social History Occupation: Employed Full-time Lives: With Family Alcohol Use: None Hx Substance Use: No Substance Use Type: Reports: None Hx Tobacco Use: No Smoking Status (MU): Never Smoked Tobacco Review of Systems Negative: Fever, Chills, Fatigue, Skin Diaphoresis Negative: Sore Throat, Ear Ache Positive: Chest Pain. Negative: Palpitations Negative: Shortness Of Breath, Cough Genitourinary: Negative Positive: no symptoms reported, see HPI Negative: Arthralgia, Myalgia Neurological/Mental Status: Negative All Other Systems Reviewed And Are Negative: Yes Physical Exam Triage Information Reviewed: Yes Vital Signs On Initial Exam: Initial Vitals Pulse Pulse Ox 54 97 09/03/19 05:56 09/03/19 05:56 Vital Signs Reviewed: Yes Appearance: Positive: Well-Appearing, Well-Nourished Skin: Positive: Warm, Skin Color Reflects Adequate Perfusion Head/Face: Positive: Normal Head/Face Inspection Eyes: Positive: EOMI, LEAH, Conjunctiva Clear Respiratory/Lung Sounds: Positive: Clear to Auscultation, Breath Sounds Present Cardiovascular: Positive: RRR, Pulses are Symmetrical in both Upper and Lower Extremities Musculoskeletal: Positive: Normal, Strength/ROM Intact Neurological: Positive: Speech Normal Psychiatric: Positive: Normal, Affect/Mood Appropriate AVPU Assessment: Alert Procedures - Sedation Patient Received Moderate/Deep Sedation with Procedure: No Diagnostics - Vital Signs Vital Signs Temp Pulse Resp BP Pulse Ox 09/03/19 08:27 47 12 126/84 98 09/03/19 08:01 52 16 97 09/03/19 07:58 55 19 120/72 97 09/03/19 07:27 56 15 118/83 96 09/03/19 07:00 56 13 97 09/03/19 06:58 48 16 119/76 96 09/03/19 06:53 16 114/79 96 09/03/19 06:52 55 15 114/79 96 09/03/19 06:50 49 17 98 09/03/19 06:02 58 09/03/19 06:00 55 123/74 98 09/03/19 05:59 98.7 F 52 15 12374 99 09/03/19 05:56 54 97 - Laboratory Lab Results: Lab Results 09/03/19 09/03/19 09/03/19 Range/Units 06:37 06:37 06:37 WBC 4.4 (3.5-10.8) 10^3/uL RBC 4.08 (3.70-4.87) 10^6 /uL Hgb 12.3 (12.0-16.0) g/dL Hct 35 (35-47) % MCV 87 (80-97) fL MCH 30 (27-31) pg MCHC 35 (31-36) g/dL RDW 14 (10-15) % Plt Count 237 (150-450) 10^3/uL MPV 8.8 (7.4-10.4) fL Neut % (Auto) 63.6 % Lymph % (Auto) 23.6 % [place] % (Auto) 9.6 % Eos % (Auto) 2.6 % Baso % (Auto) 0.6 % Absolute Neuts (auto) 2.8 (1.5-7.7) 10^3/ul Absolute Lymphs (auto) 1.0 (1.0-4.8) 10^3/ul Absolute Monos (auto) 0.4 (0-0.8) 10^3/ul Absolute Eos (auto) 0.1 (0-0.6) 10^3/ul Absolute Basos (auto) 0.0 (0-0.2) 10^3/ul Absolute Nucleated RBC 0.0 10^3/ul Nucleated RBC % 0.1 INR (Anticoag Therapy) 0.95 (0.82-1.09) Sodium 141 (135-145) mmol/L Potassium 4.0 (3.5-5.0) mmol/L Chloride 110 (101-111) mmol/L Carbon Dioxide 26 (22-32) mmol/L Anion Gap 5 (2-11) mmol/L BUN 14 (6-24) mg/dL Creatinine 0.88 (0.51-0.95) mg/dL Est GFR ( Amer) 83.7 (>60) Est GFR (Non-Af Amer) 69.2 (>60) BUN/Creatinine Ratio 15.9 (8-20) Glucose 129 H (70-100) mg/dL Lactic Acid (0.5-2.0) mmol/L Calcium 8.9 (8.6-10.3) mg/dL Magnesium 1.8 L (1.9-2.7) mg/dL Total Bilirubin 0.50 (0.2-1.0) mg/dL AST 21 (13-39) U/L ALT 19 (7-52) U/L Alkaline Phosphatase 72 (34-104) U/L Troponin I 0.00 (<0.03) ng/mL Total Protein 6.8 (6.4-8.9) g/dL Albumin 4.0 (3.2-5.2) g/dL Globulin 2.8 (2-4) g/dL Albumin/Globulin Ratio 1.4 (1-3) TSH 1.08 (0.34-5.60) mcIU/mL Thyroxine (T4) 7.37 (6.09-12.23) mcg/dL 09/03/19 Range/Units 06:37 WBC (3.5-10.8) 10^3/uL RBC (3.70-4.87) 10^6 /uL Hgb (12.0-16.0) g/dL Hct (35-47) % MCV (80-97) fL MCH (27-31) pg MCHC (31-36) g/dL RDW (10-15) % Plt Count (150-450) 10^3/uL MPV (7.4-10.4) fL Neut % (Auto) % Lymph % (Auto) % [place] % (Auto) % Eos % (Auto) % Baso % (Auto) % Absolute Neuts (auto) (1.5-7.7) 10^3/ul Absolute Lymphs (auto) (1.0-4.8) 10^3/ul Absolute Monos (auto) (0-0.8) 10^3/ul Absolute Eos (auto) (0-0.6) 10^3/ul Absolute Basos (auto) (0-0.2) 10^3/ul Absolute Nucleated RBC 10^3/ul Nucleated RBC % INR (Anticoag Therapy) (0.82-1.09) Sodium (135-145) mmol/L Potassium (3.5-5.0) mmol/L Chloride (101-111) mmol/L Carbon Dioxide (22-32) mmol/L Anion Gap (2-11) mmol/L BUN (6-24) mg/dL Creatinine (0.51-0.95) mg/dL Est GFR ( Amer) (>60) Est GFR (Non-Af Amer) (>60) BUN/Creatinine Ratio (8-20) Glucose (70-100) mg/dL Lactic Acid 1.1 (0.5-2.0) mmol/L Calcium (8.6-10.3) mg/dL Magnesium (1.9-2.7) mg/dL Total Bilirubin (0.2-1.0) mg/dL AST (13-39) U/L ALT (7-52) U/L Alkaline Phosphatase (34-104) U/L Troponin I (<0.03) ng/mL Total Protein (6.4-8.9) g/dL Albumin (3.2-5.2) g/dL Globulin (2-4) g/dL Albumin/Globulin Ratio (1-3) TSH (0.34-5.60) mcIU/mL Thyroxine (T4) (6.09-12.23) mcg/dL Result Diagrams: 09/03/19 06:37 09/03/19 06:37 Lab Statement: Any lab studies that have been ordered have been reviewed, and results considered in the medical decision making process. Chest Pain Course/Dx - Course Course Of Treatment: Pt states she feels improved on arrival. Sxs currently 3/ 10 non radiating. Endorses nausea. Given Zofran with good relief. Physical examination, patient appears well. She is nondiaphoretic and nontoxic in appearing. Vital signs are stable. Lungs CTA, RRR. She is slightly bradycardic on EKG showing a rate of 52. Heart score = 3 low risk for adverse events. Patient recently had a full cardiac workup (see HPI) all of which was essentially negative. Chest xray negative. She has a follow up apt in [address] Donahue. Discussed findings with patient. Pt is comfortable going home and continues to deny any symptoms . Pt is symptom free, heart score low and no acute findings on EKG and labs. Pt will be discharged home in good condition. Dx with atypical chest pain. - Chest Pain Differential Diagnosis/HQI/PQRI: Angina, Chest Wall - Diagnoses Provider Diagnoses: Atypical chest pain Discharge ED - Sign-Out/Discharge Documenting (check all that apply): Patient Departure - Discharge Plan Condition: Stable Disposition: HOME Referrals: Leny Ortiz MD [Primary Care Provider] - Additional Instructions: Please follow up with Dr. Donahue as scheduled If you have any worsening or changing symptoms, please return to the ED immediately - Billing Disposition and Condition Condition: STABLE Disposition: Home - Attestation Statements Provider Attestation: I was available for consult. This patient was seen by the [facility]SUF. The patient was not presented to, seen by, or examined by me. Chandan Bird MD
== END 2019-09-03 08:32 | disposition home or self-care (01) ==
LOC: ED 05:47
DX: R07.89 Other chest pain (principal); R11.0 Nausea; R00.1 Bradycardia, unspecified; E11.9 Type 2 diabetes mellitus without complications; E78.5 Hyperlipidemia, unspecified; I10 Essential (primary) hypertension; K21.9 Gastro-esophageal reflux disease without esophagitis; Z79.899 Other long term (current) drug therapy; Z98.84 Bariatric surgery status; Z88.2 Allergy status to sulfonamides; Z88.1 Allergy status to other antibiotic agents; Z91.030 Bee allergy status
CPT/HCPCS: 36415; 71046; 80053; 83605; 83735; 84436; 84443; 84484; 85025; 85610; 93005; 99283

== ENCOUNTER 2020-10-08 07:33 | Observation (INO) ==
[2020-10-08] MEDS ORDERED: Diltiazem IV push/loading dose 5 MG/ML 5 ML vial (25 mg) IV SLOW PU ONE (07:58)
[2020-10-08 08:15] LABS: ABS Eosinophils 0.1 10^3/ul (0-0.6); ABS Lymphocytes 1.6 10^3/ul (1.0-4.8); ABS Monocytes 0.5 10^3/ul (0-0.8); ABS Neutrophils 3.2 10^3/ul (1.5-7.7); Eosinophil % 2.1 %; Hematocrit 41 % (35-47); Hemoglobin 13.9 g/dL (12.0-16.0); Lymphocyte % 29.7 %; Mean Corpuscular HGB Conc 34 g/dL (31-36); Mean Corpuscular Hemoglobin 31 pg (27-31); Mean Corpuscular Volume 90 fL (80-97); Mean Platelet Volume 8.9 fL (7.4-10.4); Platelet Count 271 10^3/uL (150-450); Red Blood Count 4.51 10^6 /uL (3.70-4.87); Red Cell Distribution Width 13 % (10-15); White Blood Count 5.4 10^3/uL (3.5-10.8)
[2020-10-08] MEDS ORDERED: NS 0.9% 1000 ml BAG 1,000 ML IV SCH (08:15)
[2020-10-08 08:22] LABS: Activated Partial Thrombo Time 30.1 seconds (26.0-38.0); INR 0.91 (0.82-1.09)
[2020-10-08 08:23] LABS: Urine Appearance Clear; Urine Bilirubin Negative (Negative); Urine Blood Negative (Negative); Urine Color Colorless; Urine Glucose Negative (Negative); Urine Ketones Negative (Negative); Urine Nitrite Negative (Negative); Urine Protein 1+(30 mg/dL) (Negative); Urine Specific Gravity 1.002 (1.010-1.030); Urine Urobilinogen Negative (Negative)
[2020-10-08 08:29] LABS: Albumin 4.6 g/dL (3.2-5.2); Albumin/Globulin Ratio 1.6 (1-3); BUN/Creatinine Ratio 16.7 (8-20); Calcium 9.2 mg/dL (8.6-10.3); EGFR African American 87.9 (>60); EGFR Non-African American 72.7 (>60); Globulin 2.9 g/dL (2-4); Magnesium 1.8 mg/dL (1.9-2.7); Potassium 3.7 mmol/L (3.5-5.0); Total Bilirubin 0.5 mg/dL (0.2-1.0); Total Protein 7.5 g/dL (6.4-8.9)
[2020-10-08 08:33] LABS: Urine Bacteria 1+ (Absent); Urine Red Blood Cell Trace(0-2/hpf) (Absent); Urine Squamous Epithelial Cell Present (Absent); Urine White Blood Cell Absent (Absent)
[2020-10-08 09:08] LABS: TSH Ultra Thyroid Stim Horm 0.91 mcIU/mL (0.34-5.60)
[2020-10-08] MEDS ORDERED: Ondansetron 4 mg VIAL 2 MG/ML 2 ml VIAL IV PRN (09:39)
[2020-10-08] MEDS ORDERED: Diltiazem (ADVAN VIAL) 100 MG/100 ML ADDV.BAG IV SCH ×2 (10:00→10:38)
[2020-10-08] MEDS ORDERED: Midazolam 5 mg/5 ml VIAL 1 mg/ml 5 ml VIAL (5 mg) ONE ×2 (14:18→14:21)
[2020-10-08] MEDS ORDERED: fentaNYL 100 mcg/2 ml 50 MCG/ML VIAL ONE (14:18)
[2020-10-08] MEDS ORDERED: Naloxone 0.4 mg VIAL 0.4 mg/ml 1 ml VIAL ONE (14:21)
[2020-10-08] MEDS ORDERED: Flumazenil 0.5 mg/5 ml 0.1 MG/ML 5 ml VIAL ONE (14:21)
[2020-10-08] MEDS ORDERED: Dextrose 50% Syringe 50 ml 25 GM/50 ML SYRINGE IV PUSH PRN (20:54)
[2020-10-09 06:07] LABS: ABS Eosinophils 0.1 10^3/ul (0-0.6); ABS Lymphocytes 1.3 10^3/ul (1.0-4.8); ABS Monocytes 0.4 10^3/ul (0-0.8); ABS Neutrophils 3.5 10^3/ul (1.5-7.7); Hematocrit 37 % (35-47); Hemoglobin 12.6 g/dL (12.0-16.0); Lymphocyte % 23.9 %; Mean Corpuscular HGB Conc 34 g/dL (31-36); Mean Corpuscular Hemoglobin 31 pg (27-31); Mean Corpuscular Volume 91 fL (80-97); Mean Platelet Volume 9.1 fL (7.4-10.4); Nucleated Red Blood Cells % 0.1; Platelet Count 255 10^3/uL (150-450); Red Blood Count 4.08 10^6 /uL (3.70-4.87); Red Cell Distribution Width 14 % (10-15); White Blood Count 5.3 10^3/uL (3.5-10.8)
[2020-10-09 06:30] LABS: BUN/Creatinine Ratio 21.1 (8-20); Calcium 8.9 mg/dL (8.6-10.3); EGFR African American 98.7 (>60); EGFR Non-African American 81.6 (>60); Potassium 4.3 mmol/L (3.5-5.0)
[2020-10-09 08:46] VITALS: BP 115/67
== END 2020-10-09 11:20 | disposition home or self-care (01) ==
LOC: ED 07:33 → MEDTELE 07:33
PROVIDERS: ADMIT Hospitalist; ATTEND Hospitalist